=== PATIENT | male | born 1945 | race Caucasian/White ===

== ENCOUNTER 2017-09-08 08:41 | Emergency (ER) | payer MEDICARE, OTHER, SELFPAY ==
[2017-09-08 08:59] VITALS: BP 132/76; PULSE 58; RESP 16; TEMP 36.6; O2SAT 100
--- NOTE | 2017-09-08 09:29 | ED_ITS ---
HPI - Back Pain/Injury General Chief Complaint: Back Pain/Injury Stated Complaint: back pain Time Seen by Provider: 09/08/17 09:13 Source: patient Mode of arrival: ambulatory Limitations: no limitations History of Present Illness HPI Narrative: Patient is a 72-year-old male who presents with back pain. He says he was messing with the filter pulp washer last week when he thinks he tweaked it. He has had multiple back surgeries in the past and feels he may have injured something. He did not fall. Is to the left lateral side. He thinks it feels like a pinched nerves. He has been taking some ibuprofen without much relief he took 1 of his 's Vicodin which only gave him a headache. He has no changes in bowel or bladder habits. MD Complaint: back pain Onset (ago): week(s) (1) Related Data Home Medications Medication Instructions Recorded Confirmed Clopidogrel Hydrogen Sulfate 75 mg PO QDAY #0 07/10/12 (PLAVIX) [SIMVASTATIN] 20 mg HS #0 08/21/12 atenolol 25 mg PO HS #0 08/21/12 Previous Rx's Medication Instructions Recorded cyclobenzaprine 5 mg PO TID PRN #14 tab 09/08/17 Review of Systems Review of Systems All systems reviewed & are unremarkable except as noted in HPI and below Constitutional Denies chills, Denies fever(s), Denies lethargy and Denies weakness Cardiovascular Denies chest pain, Denies irregular heart rhythm, Denies lightheadedness, Denies palpitations, Denies dyspnea, Denies dyspnea on exertion and Denies orthopnea Respiratory Denies cough, Denies dyspnea, Denies dyspnea on exertion and Denies wheezing Musculoskeletal Reports system reviewed and no additional complaints, except as docu, Reports as per HPI, Reports back pain, Denies numbness and Denies tingling Integumentary/Breasts Denies pruritus, Denies erythema, Denies rash and Denies wounds Neurologic Denies focal weakness, Denies numbness, Reports radicular pain, Denies tingling , Denies paresthesias and Denies weakness Endocrine Denies palpitations Allergic/Immunologic Denies wheezing PFSH Medical History Agent orange exposure (Acute) Coronary artery disease (Acute) Prostate cancer (Acute) Surgical History History of lumbar fusion (Acute) Social History Smoking Status: Never smoker alcohol intake: never substance use type: does not use Exam Initial Vital Signs Initial Vital Signs: Vital Signs Temperature 97.9 F 09/08/17 08:59 Pulse Rate 58 L 09/08/17 08:59 Respiratory Rate 16 09/08/17 08:59 Blood Pressure 132/76 H 09/08/17 08:59 Pulse Oximetry 100 09/08/17 08:59 Const General: cooperative Nutritional Appearance: overweight Orientation: alert, awake and oriented x3 Chest Chest: normal inspection of the chest Resp Effort & Inspection: normal respiratory effort, able to speak in complete sentences, no respiratory distress and no use of accessory muscles Auscultation: clear to auscultation bilaterally, no rales, no rhonchi and no wheezes Cardio Rate: regular rate Rhythm: regular rhythm Heart Sounds: no click, no gallops, no murmurs and no rubs Pulses: normal peripheral pulses Back/Spine/Pelvis Thoracic/Lumbar Spine: thoracic and lumbar spine normal to inspection, surgical scar(s) present (Lumbar area), No mass, No thoracic spinal tenderness and other (Tender in thoraco lumbar junction on the left side beyond the para spinal muscles no midline tenderness) Skin General: no rashes or lesions noted, No jaundice and No petechiae Neuro General: alert, oriented x3, gait normal and no focal motor deficits Speech: speech normal Course Vital Signs - 8 hr 09/08/17 08:59 09/08/17 09:44 Temperature 97.9 F Pulse Rate 58 L 59 L Respiratory Rate 16 18 Blood Pressure 132/76 H 140/78 H Pulse Oximetry 100 99 Discharge Plan Departure Patient Disposition: Home, Self-Care Clinical Impression: Thoracic back pain Discharge Date/Time: 09/08/17 09:44 Interventions: ED Discharge Assessment Last Done: 09/08/17 09:44 Instructions: Low Back Pain Activity Restrictions/Additional Instructions: *You have been diagnosed with back pain *What to do: If pain is persisting may require imaging in 1-2 weeks with her primary care physician. Physical therapy may help with back pain. No heavy lifting or strenuous activity but light activity is encouraged *Continue to take medications as directed -Flexeril 1 tablet 3 times a day only if needed for muscle spasm on this does cause drowsiness do not drive racing or operating heavy machinery *Follow up with your primary care provider in 2-3 days *Return to ER if you should have numbness, tingling, changes in bowel or bladder habits any new, worsening or concerning symptoms Prescriptions: New cyclobenzaprine 5 mg tablet 5 mg PO TID PRN (Reason: muscle spasm) Qty: 14 RF: 0 No Action Clopidogrel Hydrogen Sulfate (PLAVIX) 75 mg PO QDAY Qty: 0 RF: 0 atenolol 25 MG tablet 25 mg PO HS Qty: 0 RF: 0 [SIMVASTATIN] 20 mg HS Qty: 0 RF: 0
[2017-09-08 09:44] VITALS: BP 140/78; PULSE 59; RESP 18; O2SAT 99
== END 2017-09-08 09:44 | disposition home or self-care (01) ==
PROVIDERS: Emergency Provider Emergency Medicine; Family Provider Family Medicine; PCP Family Medicine
DX: M54.6 Pain in thoracic spine (principal)
CPT/HCPCS: 99282

== ENCOUNTER → 2018-11-21 09:26 | Outpatient (CLI) | payer MEDICARE, OTHER, SELFPAY ==
[2018-11-21 10:22] LABS: Add Manual Diff / Slide Review NO; Basophils Absolute Auto 0 /uL (0-100); Basophils Percent Auto 0.4 % (0-2); Eosinophils Absolute Auto 100 /uL (0-450); Eosinophils Percent Auto 2.1 % (2-4); Hematocrit 43.5 % (41-53); Hemoglobin 14.7 g/dL (13.5-17.5); Lymphocytes Absolute Auto 900 /uL (1100-4500); Lymphocytes Percent Auto 19.8 % (25-40); Mean Corpuscular HGB Conc 33.7 % (30-36); Mean Corpuscular Hemoglobin 30.3 PG (26-34); Mean Corpuscular Volume 90.1 fL (80-100); Monocytes Absolute Auto 500 /uL (0-900); Monocytes Percent Auto 11.3 % (3-14); Neutrophils Absolute Auto 3000 /uL (1500-7000); Neutrophils Percent Auto 66.4 % (50-75); Platelet Count 192 X10^3/uL (150-400); Red Blood Cell Count 4.83 X10^6/uL (4.5-5.9); Red Cell Distribution Width 14.2 % (11.6-14.8); White Blood Cell Count 4.6 X10^3/uL (4.5-11.0)
[2018-11-21 10:46] LABS: Alanine Aminotransferase 25 IU/L (21-72); Albumin 4.2 g/dL (3.5-5.0); Albumin Globulin Ratio 1.5 (1.0-2.8); Alkaline Phosphatase 63 U/L (38-126); Aspartate Aminotransferase 23 IU/L (17-59); BUN Creatinine Ratio 17.5 (6-22); Bilirubin Total 2.2 mg/dL (0.2-1.3); Blood Urea Nitrogen 21 mg/dL (9-20); Calcium 9.2 mg/dL (8.4-10.2); Carbon Dioxide 28 mmol/L (22-32); Chloride 105 mmol/L (98-107); Cholesterol 86 mg/dL (140-199); Globulin 2.8 g/dL (1.7-4.1); Glucose 96 mg/dL (80-110); HDL Cholesterol 39 mg/dL (40-60); HEMOLYSIS < 15 (0-50); LDL Cholesterol Calculated 30 mg/dL (<100); Potassium 4.4 mmol/L (3.4-5.1); Sodium 141 mmol/L (137-145); Triglycerides 85 mg/dL (35-150)
== END ==
PROVIDERS: Visit Provider Internal Medicine
DX: I25.10 Atherosclerotic heart disease of native coronary artery without angina pectoris (principal); E78.2 Mixed hyperlipidemia
CPT/HCPCS: 36415; 80053; 80061; 85025

== ENCOUNTER 2019-04-30 07:08 | Day surgery (SDC) | payer MEDICARE, OTHER, SELFPAY ==
--- NOTE | 2019-04-30 | PATH_ITS ---
[facility] Accession Number: [id number] . 01 Material submitted: . PART A: colon - TRANSVERSE COLON POLYP X4 PART B: colon - ASCENDING COLON POLYP X3 PART C: colon - DESCENDING COLON POLYP . 02 Diagnosis: A. Transverse Colon Polyp: Multiple portions of tubular adenoma. . B. Ascending Colon Polyps: Portions of tubular adenoma x2. . C. Descending Colon Polyp: Tubular adenoma. [facility] 05/01/2019 1106 Local . 02 Electronically signed: . Chloé Lee MD, Pathologist NPI- [id number] . 01 Gross description: . Part A: TRANSVERSE COLON POLYP X4: Received in formalin are multiple fragment(s) of bull, soft tissue measuring 0.1 x 0.1 x 0.1 cm to 0.4 x 0.4 x 0.2 cm submitted entirely in 1 cassette(s) Part B: ASCENDING COLON POLYP X3: Received in formalin are 3 fragment(s) of bull, soft tissue measuring 0.1 x 0.1 x 0.1 cm to 0.2 x 0.2 x 0.2 cm submitted entirely in 1 cassette(s) Part C: DESCENDING COLON POLYP: Received in formalin is 1 fragment(s) of bull, soft tissue measuring 0.5 x 0.3 x 0.3 cm submitted entirely in 1 cassette(s) /[facility] 04/30/2019 1935 Local . 02 Pathologist provided ICD-10: K63.5 . 02 CPT . 541685, 249234, [id number] Performed at: [address], [place], [place] [id number] MD Tahir Mcfadden MD Phone: [phone] Performed at: [address] [place] [id number] [place] [id number] MD Karen Marte MD Phone: [phone]
[2019-04-30 08:00] VITALS: BP 136/79; PULSE 72; RESP 22; TEMP 36.8; O2SAT 97; BMI 37.8
[2019-04-30] MEDS: SODIUM CHLORIDE 0.9% 1,000 ML 84 ML IV (08:00)
--- NOTE | 2019-04-30 08:33 | PM.HP.1 ---
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 (Chronic) Coronary artery disease (Chronic) Obesity (BMI 30-39.9) (Chronic) Obstructive sleep apnea of adult (Chronic) Primary insomnia (Inactive) Prostate cancer (Inactive) Snoring (Inactive) Surgical History History of lumbar fusion (Resolved) Family & Social History Social History: household members spouse Tobacco & Substance use: Smoking Status Never smoker alcohol intake never alcohol intake frequency 0-2 drinks per day Substance Use Type does not use Meds Home Medications and Allergies Home Medications Medication Instructions Recorded Confirmed Type Clopidogrel Hydrogen Sulfate 75 mg PO QDAY #0 07/10/12 04/30/19 History (PLAVIX) [SIMVASTATIN] 20 mg HS #0 08/21/12 04/30/19 History atenolol 25 mg PO HS #0 08/21/12 04/30/19 History Respironics DreamStation CPAP #1 ea 06/12/18 06/12/18 History aspirin 81 mg PO DAILY 04/30/19 04/30/19 History Allergies Allergy/AdvReac Type Severity Reaction Status Date / Time No Known Drug Allergies Allergy Verified 04/30/19 08:01 Review of Systems Review of Systems ROS: Yes All systems reviewed with the patient and are negative except as otherwise documented Exam Vital Signs (past 8 hours): - 04/30/19 08:00 Temperature 98.2 F Pulse Rate 72 Respiratory Rate 22 Blood Pressure 136/79 Pulse Oximetry 97 Oxygen Delivery Method Room Air Narrative Exam Narrative: Awake alert oriented x3, no acute distress, regular rate and rhythm, lungs clear to auscultation, no lower extremity edema Assessment & Plan Assessment & Plan narrative: colon cancer screening for colonoscopy
[2019-04-30] MEDS: fentaNYL 250 MCG/5 ML INJ IV (08:55)
[2019-04-30] MEDS: MIDAZOLAM 5 MG/5 ML VIAL IV (08:55)
--- NOTE | 2019-04-30 09:22 | PM.OP.ENDO ---
Operative Date/Time/Diagnoses Date of procedure: 04/30/19 Procedure & Clinicians Study performed: Colonoscopy with snare polypectomy Moderate conscious sedation was administered by the endoscopy nurse and supervised by the endoscopist. The following parameters were monitored: Oxygen saturation, heart rate, blood pressure, and response to care. Sedation totals: 5 mg midazolam, 100 mcg fentanyl Indications: Personal history of colon polyps. Last colonoscopy was done in 2008 Procedure Notes Procedure in detail: Prior to the procedure, history and physical was performed, and patient medications and allergies were reviewed. Preprocedure nursing history and assessment was reviewed. Patient identification and proposed procedure were verified by the physician and nurse in the procedure room. The physical status of the patient was reassessed after the procedure. After informed consent was obtained including risks, benefits, and alternatives, the scope was passed under direct vision. Throughout the procedure, the patient's blood pressure, pulse, and oxygen saturations were monitored continuously. The colonoscope was introduced through the anus and advanced to the cecum as identified by the appendiceal orifice and ileocecal valve. The patient tolerated the procedure well. Bowel prep was deemed adequate to detect polyps greater than 5 mm. Perianal and digital rectal examinations were unremarkable. Retroflexion in the rectum revealed grade 1 internal hemorrhoids. Many medium mouth to diverticuli were noted in the sigmoid and descending colon Eight 3-7 mm sessile polyps were removed from the ascending colon (3), transverse colon (4), and descending colon with a cold snare and were retrieved. Impression: Internal hemorrhoids Left-sided colonic diverticulosis Eight 3-7 mm removed from the ascending, transverse, and descending colon Sedation minutes: 29 Complications: other (EBL minimal. No complications) Post-procedure Plan for aftercare: Follow-up pathology results Repeat colonoscopy at a date to be determined based on pathology results High-fiber diet Resume home medications. Restart Plavix tomorrow Discharge home with escort
[2019-04-30 09:27] VITALS: BP 119/73; PULSE 66; RESP 16; TEMP 37.1; O2SAT 98
[2019-04-30 10:00] VITALS: BP 124/75; PULSE 69; RESP 14; TEMP 36.7; O2SAT 99
== END 2019-04-30 10:00 | disposition home or self-care (01) ==
PROVIDERS: PCP Internal Medicine; Referring Provider Internal Medicine; Visit Provider Internal Medicine
PROC: 0DJD8ZZ Inspection of Lower Intestinal Tract, Via Natural or Artificial Opening Endoscopic (ICD-10-PCS; CPT 45378; principal; 2019-04-30 08:30)
DX: Z12.11 Encounter for screening for malignant neoplasm of colon (principal); Z86.010 Personal history of colon polyps; K57.30 Diverticulosis of large intestine without perforation or abscess without bleeding; K64.0 First degree hemorrhoids; D12.2 Benign neoplasm of ascending colon; D12.3 Benign neoplasm of transverse colon; D12.4 Benign neoplasm of descending colon
CPT/HCPCS: 45385; J2250; J3010

== ENCOUNTER → 2020-06-17 15:01 | Outpatient (ROUT) | payer MEDICARE, OTHER, SELFPAY ==
[2020-06-17 16:03] LABS: Add Manual Diff / Slide Review NO; Basophils Absolute Auto 0 /uL (0-100); Basophils Percent Auto 0.5 % (0-2); Eosinophils Absolute Auto 200 /uL (0-450); Eosinophils Percent Auto 4.8 % (2-4); Hematocrit 42.4 % (41-53); Hemoglobin 14.3 g/dL (13.5-17.5); Lymphocytes Absolute Auto 900 /uL (1100-4500); Lymphocytes Percent Auto 17.4 % (25-40); Mean Corpuscular HGB Conc 33.7 % (30-36); Mean Corpuscular Hemoglobin 30.9 PG (26-34); Mean Corpuscular Volume 91.6 fL (80-100); Monocytes Absolute Auto 600 /uL (0-900); Monocytes Percent Auto 11.6 % (3-14); Neutrophils Absolute Auto 3300 /uL (1500-7000); Neutrophils Percent Auto 65.7 % (50-75); Platelet Count 193 X10^3/uL (150-400); Red Blood Cell Count 4.62 X10^6/uL (4.5-5.9); Red Cell Distribution Width 13.5 % (11.6-14.8)
[2020-06-17 16:31] LABS: BUN Creatinine Ratio 15.7 (6-22); Blood Urea Nitrogen 17 mg/dL (9-20); Calcium 9.1 mg/dL (8.4-10.2); Carbon Dioxide 28 mmol/L (22-32); Chloride 107 mmol/L (98-107); Cholesterol 97 mg/dL (140-199); Estimated Glomerular Filt Rate > 60.0 mL/min (>60); Glucose 96 mg/dL (80-110); HDL Cholesterol 47 mg/dL (40-60); HEMOLYSIS < 15 (0-50); LDL Cholesterol Calculated 25 mg/dL (<100); Phosphorous 2.4 mg/dL (2.3-3.7); Sodium 142 mmol/L (137-145); Triglycerides 124 mg/dL (35-150)
[2020-06-17 16:56] LABS: Prostate Specific Antigen 0.095 ng/mL (0.10-4.00)
[2020-06-18 07:08] LABS: Parathyroid Hormone Int 88 pg/mL (15-65)
== END ==
PROVIDERS: PCP Internal Medicine; Visit Provider Internal Medicine
DX: N18.30 Chronic kidney disease, stage 3 unspecified (principal); E78.2 Mixed hyperlipidemia; Z85.46 Personal history of malignant neoplasm of prostate
CPT/HCPCS: 80048; 80061; 83970; 84100; 84153; 85025

== ENCOUNTER 2020-07-18 19:10 | Observation (INO) | payer MEDICARE, OTHER, SELFPAY ==
[2020-07-18] VITALS (13 sets, daily range): BP systolic 135–163; BP diastolic 68–89; PULSE 62–95; RESP 18–24; TEMP 36.6; O2SAT 94–100; BMI 36.5
--- NOTE | 2020-07-18 19:16 | DI.US.S_ITS ---
PROCEDURE: US ABDOMEN LIMITED INDICATIONS: EPIGASTRIC PAIN; N/V TECHNIQUE: Real-time focused scanning was performed of the abdomen, with image documentation. COMPARISON: None. FINDINGS: Liver measures 19.5 cm in length. There is a simple appearing cyst measuring 1.8 x 2.2 x 1.7 cm in the right hepatic lobe. Gallbladder surgically absent. Bile ducts are normal. Pancreas not well seen secondary to body habitus and bowel gas IMPRESSION: Mild hepatomegaly Right hepatic cyst. Status post cholecystectomy Dictated by: Harrison Brown M.D. on 07/18/2020 at 20:21 Approved by: Harrison Brown M.D. on 07/18/2020 at 20:22
[2020-07-18] MEDS: PANTOPRAZOLE 40 MG VIAL IV (19:44)
[2020-07-18] MEDS: SODIUM CHLORIDE 0.9% 1,000 ML 1000 ML IV (19:44)
[2020-07-18] MEDS: ONDANSETRON 4 MG/2 ML INJ IV (19:44)
[2020-07-18 19:46] LABS: Add Manual Diff / Slide Review NO; Basophils Absolute Auto 0 /uL (0-100); Basophils Percent Auto 0.5 % (0-2); Eosinophils Absolute Auto 0 /uL (0-450); Eosinophils Percent Auto 0.2 % (2-4); Hematocrit 44.1 % (41-53); Hemoglobin 15.3 g/dL (13.5-17.5); Lymphocytes Absolute Auto 700 /uL (1100-4500); Lymphocytes Percent Auto 6.8 % (25-40); Mean Corpuscular HGB Conc 34.7 % (30-36); Mean Corpuscular Hemoglobin 31.4 PG (26-34); Mean Corpuscular Volume 90.5 fL (80-100); Monocytes Absolute Auto 1000 /uL (0-900); Monocytes Percent Auto 9.8 % (3-14); Neutrophils Absolute Auto 8100 /uL (1500-7000); Neutrophils Percent Auto 82.7 % (50-75); Platelet Count 197 X10^3/uL (150-400); Red Blood Cell Count 4.88 X10^6/uL (4.5-5.9); Red Cell Distribution Width 13.7 % (11.6-14.8); White Blood Cell Count 9.8 X10^3/uL (4.5-11.0)
[2020-07-18 19:57] LABS: Alanine Aminotransferase 35 IU/L (<50); Albumin 4.5 g/dL (3.5-5.0); Albumin Globulin Ratio 1.5 (1.0-2.8); Alkaline Phosphatase 87 U/L (38-126); Aspartate Aminotransferase 41 IU/L (17-59); BUN Creatinine Ratio 26.4 (6-22); Blood Urea Nitrogen 29 mg/dL (9-20); Calcium 9.3 mg/dL (8.4-10.2); Carbon Dioxide 22 mmol/L (22-32); Chloride 107 mmol/L (98-107); Creatine Kinase 427 U/L (55-170); Estimated Glomerular Filt Rate > 60.0 mL/min (>60); Glucose 109 mg/dL (80-110); HEMOLYSIS 17 (0-50); Lipase 39 U/L (23-300); Potassium 3.8 mmol/L (3.4-5.1); Sodium 138 mmol/L (137-145); Total Protein 7.5 g/dL (6.3-8.2)
[2020-07-18 20:08] LABS: Troponin I < 0.012 ng/mL (0.01-0.034)
--- NOTE | 2020-07-18 20:10 | ED.NAVMDI ---
HPI - Nausea/Vomiting/Diarrhea General Chief complaint: Nausea/Vomiting/Diarrhea Stated complaint: unable to eat anything or keep water down,vomiting Time Seen by Provider: 07/18/20 19:16 Source: patient Mode of arrival: Ambulatory Limitations: no limitations History of Present Illness HPI Narrative: 74-year-old male nonsmoker with cardiac history on atenolol and Plavix presents with his in the chief complaint of persistent nausea and vomiting with episodes of epigastric pain over the past few days. He is unable to keep anything down and any food or drink seems to exacerbate this pain. He denies any fever or chills. He denies chest pain or shortness of breath. He is not dizzy or lightheaded but is starting to feel a bit weak. His only surgical history is of a cholecystectomy years ago. He denies any significant alcohol. He has had no blood in his emesis MD complaint: nausea, vomiting and abdominal pain Onset (ago): day(s) Description of Vomiting: food contents Description of Diarrhea: none Associated Abdominal Pain: Yes Location of pain: epigastric Severity: moderate Quality: cramping Pain Consistency: intermittent Relieving factors: none Exacerbating factors: eating Associated symptoms: denies other symptoms Related Data Home Medications Medication Instructions Recorded Confirmed Clopidogrel Hydrogen Sulfate 75 mg PO QDAY #0 07/10/12 07/18/20 (PLAVIX) [SIMVASTATIN] 20 mg HS #0 08/21/12 04/30/19 atenolol 25 mg PO HS #0 08/21/12 07/18/20 Respironics DreamStation CPAP #1 ea 06/12/18 06/12/18 aspirin 81 mg PO DAILY 04/30/19 07/18/20 Allergies Allergy/AdvReac Type Severity Reaction Status Date / Time No Known Drug Allergies Allergy Verified 04/30/19 08:01 Review of Systems Constitutional Constitutional: Denies chills, Denies fatigue, Denies fever(s), Denies frequent falls, Denies lethargy and Reports weakness Eyes Eyes: Denies change in vision, Denies eye discharge, Denies irritation and Denies loss of vision ENT Ears, Nose, Mouth, and Throat: Denies change in voice, Denies dizziness, Denies neck pain, Denies sore throat and Denies throat swelling Cardiovascular Cardiovascular: Denies chest pain, Denies irregular heart rhythm, Denies lightheadedness, Denies palpitations, Denies dyspnea, Denies dyspnea on exertion and Denies orthopnea Respiratory Respiratory: Denies cough, Denies dyspnea, Denies dyspnea on exertion and Denies wheezing Gastrointestinal Gastrointestinal: Reports abdominal pain, Denies change in bowel habits, Denies diarrhea, Reports nausea and Reports vomiting Musculoskeletal Musculoskeletal: Denies neck pain and Denies numbness Integumentary/Breasts Skin/Breast: Denies pruritus, Denies erythema, Denies rash and Denies wounds Neurologic Neurologic: Denies behavioral changes, Denies confusion, Denies dizziness, Denies frequent falls, Denies loss of vision, Denies numbness and Reports weakness Psychiatric Psychiatric: Denies anxiety, Denies behavioral changes, Denies confusion, Denies depression, Denies homicidal ideation and Denies suicidal ideation Endocrine Endocrine: Denies fatigue, Denies flushing and Denies palpitations Hematologic/Lymphatic Hematologic/Lymphatic: Denies easy bruising Allergic/Immunologic Allergic/Immunologic: Denies urticaria, Denies throat swelling and Denies wheezing Patient History Medical History Agent orange exposure Coronary artery disease Obesity (BMI 30-39.9) Obstructive sleep apnea of adult Primary insomnia Prostate cancer Snoring Surgical History History of lumbar fusion Social History household members: spouse Smoking Status: Never smoker alcohol intake: never substance use type: does not use Smoking Status: Never smoker alcohol intake frequency: 0-2 drinks per day Substance Use Type: does not use Exam Narrative Exam Narrative: GENERAL: [74] year old patient appears stated age. Well-nourished, well-developed patient, in mild distress. Obviously uncomfortable, rubbing his upper abdomen HEAD: Atraumatic. Normocephalic. EYES: Pupils equal round and reactive. Extraocular motions intact. No scleral icterus. No injection or drainage. ENT: Nose without bleeding, purulent drainage. Throat without erythema, tonsillar hypertrophy or exudate. Airway patent. NECK: Trachea midline. Non tender CARDIOVASCULAR: Regular rate and rhythm without murmurs, gallops, or rubs. RESPIRATORY: Clear to auscultation. Breath sounds equal bilaterally. No wheezes, rales, or rhonchi. GASTROINTESTINAL: Abdomen soft, tender to palpation, nondistended. EXTREMITIES: No edema or joint tenderness. BACK: Nontender without deformity or crepitance. No flank tenderness. NEURO: AOx3. SKIN: No rash or erythema of visible areas Initial Vital Signs Initial Vital Signs: Vital Signs Temperature 97.8 F 07/18/20 19:17 Pulse Rate 95 H 07/18/20 19:17 Respiratory Rate 18 07/18/20 19:17 Blood Pressure 163/89 H 07/18/20 19:17 Pulse Oximetry 98 07/18/20 19:17 Course Course Course Narrative: Patient with persistent nausea vomiting and episodic epigastric pain. Initially biliary or pancreatic source considered but there is normal ultrasound, CT is ordered which demonstrates bowel obstruction as noted. Patient is not vomiting and pain is well controlled, no need or indication for NG tube at this point time. Patient will be admitted to surgical service will remain NPO, get IV fluids, pain control and antiemetics. Orders Ordered: ED Orders 07/18/20 19:16 US abdomen limited Stat 07/18/20 19:40 Complete Blood Count AUTO DIFF Stat Comprehensive Metabolic Panel Stat Lipase Stat Troponin & CK Cardiac Panel Stat 07/18/20 20:39 CT abdomen pelvis w con Stat 07/18/20 22:13 COVID19 - ADMIT ([employer] swab/PCR) Stat Discontinued Medications Sodium Chloride (Normal Saline 0.9%) 1,000 mls @ 1,000 mls/hr IV BOLUS ONE Stop: 07/18/20 20:16 Last Infusion: 07/18/20 21:22 Dose: 0 mls/hr Documented by: Admin: 07/18/20 19:44 Dose: 1,000 mls/hr Documented by: DAVION Ondansetron HCl (Ondansetron 4 Mg/2 Ml Inj) 4 mg IV NOW ONE Stop: 07/18/20 19:18 Last Admin: 07/18/20 19:44 Dose: 4 mg Documented by: DAVION Pantoprazole Sodium (Pantoprazole 40 Mg Vial) 40 mg IV NOW ONE Stop: 07/18/20 19:19 Last Admin: 07/18/20 19:44 Dose: 40 mg Documented by: DAVION Vital Signs Vital signs: Vital Signs - 8 hr 07/18/20 19:17 07/18/20 19:25 07/18/20 19:27 Temperature 97.8 F Pulse Rate 95 H 74 72 Respiratory Rate 18 24 23 Blood Pressure 163/89 H 147/80 H Pulse Oximetry 98 98 07/18/20 19:30 07/18/20 20:00 07/18/20 20:05 Temperature Pulse Rate 74 66 66 Respiratory Rate 22 Blood Pressure 144/80 H 149/73 H Pulse Oximetry 98 98 99 07/18/20 20:30 07/18/20 21:00 07/18/20 21:30 Temperature Pulse Rate 65 64 62 Respiratory Rate 20 24 Blood Pressure 145/70 H 155/77 H Pulse Oximetry 99 99 98 07/18/20 22:00 Temperature Pulse Rate 67 Respiratory Rate 24 Blood Pressure 144/68 H Pulse Oximetry 94 MDM - Nausea/Vomiting/Diarrhea Lab Data Result diagrams: 07/18/20 19:40 07/18/20 19:40 Labs: Lab Results 07/18/20 07/18/20 Range/Units 19:40 19:40 WBC 9.8 (4.5-11.0) X10^3/uL RBC 4.88 (4.5-5.9) X10^6/uL Hgb 15.3 (13.5-17.5) g/dL Hct 44.1 (41-53) % MCV 90.5 (80-100) fL MCH 31.4 (26-34) PG MCHC 34.7 (30-36) % RDW 13.7 (11.6-14.8) % Plt Count 197 (150-400) X10^3/uL Neut % (Auto) 82.7 H (50-75) % Lymph % (Auto) 6.8 L (25-40) % Cascade % (Auto) 9.8 (3-14) % Eos % (Auto) 0.2 L (2-4) % Baso % (Auto) 0.5 (0-2) % Neut # (Auto) 8100 H (1504-2667) /uL Lymph # (Auto) 700 L (7333-8956) /uL Cascade # (Auto) 1000 H (0-900) /uL Eos # (Auto) 0 (0-450) /uL Baso # (Auto) 0 (0-100) /uL Sodium 138 (137-145) mmol/L Potassium 3.8 (3.4-5.1) mmol/L Chloride 107 (98-107) mmol/L Carbon Dioxide 22 (22-32) mmol/L BUN 29 H (9-20) mg/dL Creatinine 1.10 (0.66-1.25) mg/dL Estimated GFR > 60.0 (>60) mL/min BUN/Creatinine Ratio 26.4 H (6-22) Glucose 109 (80-110) mg/dL Calcium 9.3 (8.4-10.2) mg/dL Total Bilirubin 4.0 H (0.2-1.3) mg/dL AST 41 (17-59) IU/L ALT 35 (<50) IU/L Alkaline Phosphatase 87 (38-126) U/L Total Creatine Kinase 427 H (55-170) U/L CK-MB (CK-2) 2.47 H (<2.37) ng/mL CK-MB (CK-2) Rel Index 0.6 L (1.5-5.0) % Troponin I < 0.012 (0.01-0.034) ng/mL Total Protein 7.5 (6.3-8.2) g/dL Albumin 4.5 (3.5-5.0) g/dL Globulin 3.0 (1.7-4.1) g/dL Albumin/Globulin Ratio 1.5 (1.0-2.8) Lipase 39 (23-300) U/L Imaging Data US - abdomen: Radiologist's Impression: [address] [id number] ReportSigned Patient: Jamie Brambila WMR#: [id number]: 4Acct:[id number]/Sex: 74 / MDate of Service: 07/18/20Loc: EDAccession Number: [id number] Procedure: US abdomen limited Ordering Provider: Zeb Serrano D.O. PROCEDURE: US ABDOMEN LIMITED INDICATIONS: EPIGASTRIC PAIN; N/V TECHNIQUE: Real-time focused scanning was performed of the abdomen, with image documentation. COMPARISON: None. FINDINGS: Liver measures 19.5 cm in length. There is a simple appearing cyst measuring 1.8 x 2.2 x 1.7 cm in the right hepatic lobe. Gallbladder surgically absent. Bile ducts are normal. Pancreas not well seen secondary to body habitus and bowel gas IMPRESSION: Mild hepatomegaly Right hepatic cyst. Status post cholecystectomy Dictated by: Harrison Brown M.D. on 07/18/2020 at 20:21 Approved by: Harrison Brown M.D. on 07/18/2020 at 20:22 CT scan - abdomen/pelvis: Radiologist's Impression: Jamie Brambila 74 M [address] [id number] Scan ReportSigned Patient: Jamie Brambila WMR#: [id number]: 1945cct:[id number]/Sex: 74 / MDate of Service: 07/18/20Loc: EDAccession Number: [id number] Procedure: CT abdomen pelvis w con Ordering Provider: Zeb Serrano D.O. PROCEDURE: CT ABDOMEN PELVIS W CON INDICATIONS: severe abdominal pain, N/V TECHNIQUE: After the administration of intravenous contrast, 5 mm thick sections acquired from the diaphragm to the symphysis. 5 mm coronal and sagittal reformats were acquired. For radiation dose reduction, the following was used: automated exposure control, adjustment of mA and/or kV according to patient size. COMPARISON: [facility], CT, ABDOMEN/PELVIS WITH CONTRAST, 01/27/2011, 10:07. FINDINGS: ABDOMEN: Lung bases: Normal. Small hiatal hernia Liver: Subcentimeter hepatic foci are statistically cysts or hemangiomas, although technically too small to characterize accurately and therefore nonspecific. Gallbladder: Absent Bile ducts: Normal. Pancreas: Normal. Spleen: Normal. Adrenals: Normal. Kidneys: Bilateral renal cortical atrophy and scarring. Subcentimeter renal foci, statistically cysts, although technically too small to characterize accurately and therefore nonspecific. Stomach: Normal. Bowel: Dilated small bowel loops and scattered air-fluid levels. The colon is decompressed. Other: No free fluid or air. Colonic diverticulosis is seen without evidence of acute complication. Abdominal nodes: Normal. Aorta and IVC: Normal in size. Ventral wall: Large periumbilical fat and fluid containing hernia PELVIS: Bladder: Normal. Inguinal: No hernia. Pelvic nodes: Normal. Bones: Spondylytic changes and facet arthropathy. No vertebral body compression fracture. IMPRESSION: Small-bowel obstruction, the exact transition point is not well seen although probably distal small bowel. Small hiatal hernia Additional chronic/incidental findings as above. Dictated by: Harrison Brown M.D. on 07/18/2020 at 21:23 Approved by: Harrison Brown M.D. on 07/18/2020 at 21:31 Discharge Plan Departure Patient Disposition: Admitted As Inpatient Clinical Impression: Partial obstruction of small intestine
[2020-07-18 20:12] LABS: CKMB % Relative Index 0.6 % (1.5-5.0); Creatine Kinase MB 2.47 ng/mL (<2.37)
--- NOTE | 2020-07-18 20:39 | DI.CT.S_ITS ---
PROCEDURE: CT ABDOMEN PELVIS W CON INDICATIONS: severe abdominal pain, N/V TECHNIQUE: After the administration of intravenous contrast, 5 mm thick sections acquired from the diaphragm to the symphysis. 5 mm coronal and sagittal reformats were acquired. For radiation dose reduction, the following was used: automated exposure control, adjustment of mA and/or kV according to patient size. COMPARISON: [facility], CT, ABDOMEN/PELVIS WITH CONTRAST, 01/27/2011, 10:07. FINDINGS: ABDOMEN: Lung bases: Normal. Small hiatal hernia Liver: Subcentimeter hepatic foci are statistically cysts or hemangiomas, although technically too small to characterize accurately and therefore nonspecific. Gallbladder: Absent Bile ducts: Normal. Pancreas: Normal. Spleen: Normal. Adrenals: Normal. Kidneys: Bilateral renal cortical atrophy and scarring. Subcentimeter renal foci, statistically cysts, although technically too small to characterize accurately and therefore nonspecific. Stomach: Normal. Bowel: Dilated small bowel loops and scattered air-fluid levels. The colon is decompressed. Other: No free fluid or air. Colonic diverticulosis is seen without evidence of acute complication. Abdominal nodes: Normal. Aorta and IVC: Normal in size. Ventral wall: Large periumbilical fat and fluid containing hernia PELVIS: Bladder: Normal. Inguinal: No hernia. Pelvic nodes: Normal. Bones: Spondylytic changes and facet arthropathy. No vertebral body compression fracture. IMPRESSION: Small-bowel obstruction, the exact transition point is not well seen although probably distal small bowel. Small hiatal hernia Additional chronic/incidental findings as above. Dictated by: Harrison Brown M.D. on 07/18/2020 at 21:23 Approved by: Harrison Brown M.D. on 07/18/2020 at 21:31
[2020-07-18 23:37] LABS: COVID19 - ADMIT (NP swab/PCR) Negative (Negative)
[2020-07-19 00:05] VITALS: BP 144/73; PULSE 64; RESP 18; TEMP 36.3; O2SAT 98
[2020-07-19] MEDS: SODIUM CHLORIDE 0.9% 1,000 ML 125 ML IV (00:23)
[2020-07-19 00:24] VITALS: BMI 36.3
--- NOTE | 2020-07-19 01:25 | PC.ADMIT ---
Addendum entered by Rhea Doshi R.N. 07/19/20 01:41: additional note: patient states he has some chronic SOB with exertion and does have history of sleep apnea. Did not bring home CPAP with and declines offer to use hospital CPAP. Original Note: patient admitted to room 213 at 0005 from ER per wheelchair. States he came in because, since Sunday, he wasn't able to keep anything down; also reports having had some diarrhea type stools. Patient is alert and oriented. Breath sounds diminished but CTA with RA sat of 98%. HRR. BP slightly elevated at 144/73. Denies nausea at this time. BT present but hypoactive. Denies abdominal pain/tenderness. Has reddened patch of skin in abdominal fold which appears bruised and skin is peeling; patient reports he has had this area since having radiation for prostate cancer. Scattered abrasions on bilateral UE. Denies dysuria, frequency or urgency with urination. Is able to move self in bed. Reports no use of assistive device for ambulation. Denies weakness or unsteadiness when on feet. Instructed in NPO status, use of call light and bed controls. Wallet w/money/cards placed in safe. Fall risk score is low. [email or web address] Admission Note: The patient,Jamie Brambila,74 y/o, was given written information regarding hospital policies, unit procedures and contact persons. Patient's smoking status: Former smoker. Vital Signs - 8 hr 07/18/20 19:17 07/18/20 19:25 07/18/20 19:27 Temperature 97.8 F Pulse Rate 95 H 74 72 Respiratory Rate 18 24 23 Blood Pressure 163/89 H 147/80 H Pulse Oximetry 98 98 07/18/20 19:30 07/18/20 20:00 07/18/20 20:05 Temperature Pulse Rate 74 66 66 Respiratory Rate 22 Blood Pressure 144/80 H 149/73 H Pulse Oximetry 98 98 99 07/18/20 20:30 07/18/20 21:00 07/18/20 21:30 Temperature Pulse Rate 65 64 62 Respiratory Rate 20 24 Blood Pressure 145/70 H 155/77 H Pulse Oximetry 99 99 98 07/18/20 22:00 07/18/20 22:30 07/18/20 23:00 Temperature Pulse Rate 67 64 65 Respiratory Rate 24 19 18 Blood Pressure 144/68 H 137/71 135/72 Pulse Oximetry 94 98 99 07/18/20 23:30 07/19/20 00:05 Temperature 97.3 F L Pulse Rate 65 64 Respiratory Rate 18 18 Blood Pressure 141/75 H 144/73 H Pulse Oximetry 100 98
[2020-07-19 03:57] VITALS: BP 125/57; PULSE 63; RESP 18; TEMP 36.3; O2SAT 97
[2020-07-19 07:26] VITALS: BP 169/85; PULSE 76; RESP 18; TEMP 36.2; O2SAT 99
--- NOTE | 2020-07-19 07:49 | PM.HP.1 ---
History of Present Illness History of Present Illness Date Patient Seen: 07/19/20 Time Patient Seen: 07:50 Chief complaint: unable to eat anything or keep water down,vomiting Narrative: 74-year-old man history of a cholecystectomy admitted for a partial small bowel obstruction. He presented to the emergency room with nausea emesis some generalized abdominal pain. At admission WBC 10, CT abdomen pelvis demonstrates dilated loops of small bowel questionable transition point no free air or fluid. Since admission his nausea and emesis have resolved. He is hungry, having diarrhea and passing flatus. Patient History Medical History Agent orange exposure Coronary artery disease Obesity (BMI 30-39.9) Obstructive sleep apnea of adult Primary insomnia Prostate cancer Snoring Surgical History History of lumbar fusion Family & Social History Social History: household members spouse Prior Living Arrangements House Safety & Behavioral: Feels Safe in Current Yes Environment Been Physically Hurt or No Threatened By a Person Suicidal Ideation Description None Suicide Plan Description No Plan Tobacco & Substance use: Tobacco type pipe Smoking Status Former smoker alcohol intake former alcohol intake frequency 0-2 drinks per day Substance Use Type does not use Meds Home Medications and Allergies Home Medications Medication Instructions Recorded Confirmed Type Clopidogrel Hydrogen Sulfate 75 mg PO QDAY #0 07/10/12 07/18/20 History (PLAVIX) atenolol 25 mg PO HS #0 08/21/12 07/18/20 History Respironics DreamStation CPAP #1 ea 06/12/18 06/12/18 History aspirin 81 mg PO DAILY 04/30/19 07/18/20 History simvastatin 40 mg PO DAILY 07/19/20 07/19/20 History Allergies Allergy/AdvReac Type Severity Reaction Status Date / Time No Known Drug Allergies Allergy Verified 04/30/19 08:01 Review of Systems Review of Systems ROS: Yes All systems reviewed with the patient and are negative except as otherwise documented Exam Vital Signs (past 8 hours): - 07/19/20 00:05 07/19/20 03:57 07/19/20 07:26 Temperature 97.3 F L 97.4 F L 97.2 F L Pulse Rate 64 63 76 Respiratory Rate 18 18 18 Blood Pressure 144/73 H 125/57 L 169/85 H Pulse Oximetry 98 97 99 Oxygen Delivery Method Room Air Oxygen Flow Rate 0 Narrative Exam Narrative: GENERAL-well developed elderly male, no acute distress HEENT-no scleral icterus, hearing intact NECK-no JVD, trachea midline CVS- regular rate, no peripheral edema RESP-unlabored respiratory effort, no audible wheezing GI-soft, nontender nondistended MSK-no cyanosis or clubbing, extremities without deformity SKIN-warm, dry NEURO-alert and oriented, no focal deficits PYSCH-Appropriate mood and affect Objective Labs Result Diagrams: 07/18/20 19:40 07/18/20 19:40 Labs: Laboratory Results - last 24 hr 07/18/20 07/18/20 07/18/20 19:40 19:40 22:13 WBC 9.8 RBC 4.88 Hgb 15.3 Hct 44.1 MCV 90.5 MCH 31.4 MCHC 34.7 RDW 13.7 Plt Count 197 Neut % (Auto) 82.7 H Lymph % (Auto) 6.8 L [place] % (Auto) 9.8 Eos % (Auto) 0.2 L Baso % (Auto) 0.5 Neut # (Auto) 8100 H Lymph # (Auto) 700 L [place] # (Auto) 1000 H Eos # (Auto) 0 Baso # (Auto) 0 Sodium 138 Potassium 3.8 Chloride 107 Carbon Dioxide 22 BUN 29 H Creatinine 1.10 Estimated GFR > 60.0 BUN/Creatinine Ratio 26.4 H Glucose 109 Calcium 9.3 Total Bilirubin 4.0 H AST 41 ALT 35 Alkaline Phosphatase 87 Total Creatine Kinase 427 H CK-MB (CK-2) 2.47 H CK-MB (CK-2) Rel Index 0.6 L Troponin I < 0.012 Total Protein 7.5 Albumin 4.5 Globulin 3.0 Albumin/Globulin Ratio 1.5 Lipase 39 SARS-CoV-2 (PCR) Negative Assessment & Plan Assessment & Plan narrative: 74-year-old man history of abdominal surgery admitted for a partial small bowel obstruction. Obstruction appears to be resolving spontaneously with conservative measures. No acute surgical intervention -clear liquid diet advance diet as tolerated -if tolerates diet may discharge home today -SCDs for VT prophylaxis.
[2020-07-19 08:00] VITALS: O2SAT 97
[2020-07-19 11:21] VITALS: BP 145/82; PULSE 65; RESP 16; TEMP 36.3; O2SAT 97
[2020-07-19] MEDS: SODIUM CHLORIDE 0.9% 1,000 ML 75 ML IV (12:26)
[2020-07-19 12:30] VITALS: O2SAT 97
--- NOTE | 2020-07-19 13:16 | CM.DANOTE ---
DCP/Assessment: Reviewed chart. Patient is a 74yr old male admitted to [facility] with partial SBO. PCP is Dr. More. Primary payor is 1)Medicare 2)[place]. Met with patient this AM explained CM/SW role. Patient alert and oriented, resting comfortably in bed at time of visit. Patient reports that he is completely I with all ADL's. Patient hopes to d/c home later today or in AM. Patient started on clears this AM. Dr. Jarquin is attending. P: Home when medically stable. Patient has no anticipated d/c planning needs. CLINTON Agustin Discharge Planning/Care Management CM Discharge Assessment Start: 07/19/20 13:14 Freq: Status: Active Protocol: Document 07/19/20 13:14 KJS (Rec: 07/19/20 13:16 KJS [id number]) Discharge Planning Assessment Assigned Supervisor Plate Forming CLINTON Agustin Contact Information Stephani Keating (spouse) ph# [phone] Advance Directives? No Advance Directives on File No History Provided By Patient,Medical Record Prior Living Arrangements House Household Members spouse Type of transporation used prior to Drives own vehicle admit Independent with ADL's Yes Is patient alert and oriented? Yes Caregiver for Another No Barriers to Discharge No Discharge Plan Home Transportation Arrangement Family to provide transport. Whiteboard Updated in Patient Room with Yes name and ext. # of Supervisor Plate Forming Review Status In Process Next Review Type Continued Stay Review
--- NOTE | 2020-07-19 14:08 | PC.NURSE ---
Day shift: Paperwork signed and all questions answered. Pt happy to be going home today. His spouse is driving him home. No new meds. Pt has all personal belongings. Pt had no nausea or epigastric pain today. Denied any pain as well. TOlerated clears for breakfast and lunch. Stools remain loose. aware. Taken to care in by CHRISTOPHER Foy.
== END 2020-07-19 14:10 | disposition home or self-care (01) ==
LOC: ED 22:23 → AC 07-19 07:56
PROVIDERS: Admitting Provider Surgery; Emergency Provider Emergency Medicine; PCP Internal Medicine; Referring Provider Emergency Medicine; Visit Provider Surgery
DX: R11.2 Nausea with vomiting, unspecified (principal); R10.13 Epigastric pain; G47.33 Obstructive sleep apnea (adult) (pediatric); I25.10 Atherosclerotic heart disease of native coronary artery without angina pectoris; E66.9 Obesity, unspecified; Z20.822 Contact with and (suspected) exposure to COVID-19
CPT/HCPCS: 36415; 74177; 76705; 80053; 82550; 82553; 83690; 84484; 85025; 87635; 96361; 96374; 96375; 99219; 99284; C9803; G0378; C9113; J2405

== ENCOUNTER 2022-11-09 12:02 | Inpatient (IN) | payer MEDICARE, OTHER, SELFPAY ==
[2022-11-09] VITALS (26 sets, daily range): BP systolic 105–134; BP diastolic 61–92; PULSE 112–118; RESP 18–32; TEMP 36.4; O2SAT 95–99
--- NOTE | 2022-11-09 12:22 | DI.RAD.S_ITS ---
PROCEDURE: XR CHEST 1V INDICATIONS: chest pain TECHNIQUE: One view of the chest was acquired. COMPARISON: [facility], , CHEST 2 VIEW, 07/02/2012, 15:02. FINDINGS: Surgical changes and devices: None. Lungs and pleura: Lungs are clear. No pleural effusions or pneumothorax. Mediastinum: Mediastinal contours appear normal. Heart is enlarged. Bones and chest wall: No suspicious bony lesions. Overlying soft tissues appear unremarkable. IMPRESSION: No acute cardiopulmonary disease process. Dictated by: Eun Overton MD, PhD on 11/09/2022 at 13:13 Approved by: Eun Overton MD, PhD on 11/09/2022 at 13:14
[2022-11-09 12:43] LABS: Add Manual Diff / Slide Review NO; Basophils Absolute Auto 0 /uL (0-100); Basophils Percent Auto 0.9 % (0-2); Eosinophils Absolute Auto 100 /uL (0-450); Eosinophils Percent Auto 2.4 % (2-4); Hematocrit 44.8 % (41-53); Hemoglobin 15.2 g/dL (13.5-17.5); Lymphocytes Absolute Auto 900 /uL (1100-4500); Mean Corpuscular Hemoglobin 30.6 PG (26-34); Mean Corpuscular Volume 90.1 fL (80-100); Monocytes Absolute Auto 700 /uL (0-900); Monocytes Percent Auto 11.9 % (3-14); Neutrophils Absolute Auto 3800 /uL (1500-7000); Neutrophils Percent Auto 67.8 % (50-75); Platelet Count 187 X10^3/uL (150-400); Red Blood Cell Count 4.98 X10^6/uL (4.5-5.9); Red Cell Distribution Width 13.7 % (11.6-14.8); White Blood Cell Count 5.5 X10^3/uL (4.5-11.0)
[2022-11-09 12:47] LABS: INR 1.2 (0.9-1.3); Prothrombin Time 14.3 SECONDS (10.1-12.7)
[2022-11-09 12:50] LABS: PTT Partial Thromboplastin Tim 33 SECONDS (26-36)
[2022-11-09 12:57] LABS: Alanine Aminotransferase 21 IU/L (<50); Albumin 4.3 g/dL (3.5-5.0); Albumin Globulin Ratio 1.4 (1.0-2.8); Alkaline Phosphatase 62 U/L (38-126); Aspartate Aminotransferase 25 IU/L (17-59); BUN Creatinine Ratio 15.2 (6-22); Bilirubin Total 2.6 mg/dL (0.2-1.3); Blood Urea Nitrogen 19 mg/dL (9-20); Calcium 8.9 mg/dL (8.4-10.2); Carbon Dioxide 27 mmol/L (22-32); Chloride 105 mmol/L (98-107); Creatine Kinase 86 U/L (55-170); Estimated Glomerular Filt Rate 59 mL/min (>60); Glucose 98 mg/dL (80-110); HEMOLYSIS 15 (0-50); Lipase 50 U/L (23-300); Potassium 4.2 mmol/L (3.4-5.1); Sodium 139 mmol/L (137-145); Total Protein 7.3 g/dL (6.3-8.2)
[2022-11-09 13:05] LABS: NT-proBNP (BNP-Adult 18+) 2350 pg/mL (<450)
[2022-11-09 13:07] LABS: Troponin I < 0.012 ng/mL (0.01-0.034)
[2022-11-09 13:31] LABS: TSH w/ Reflex to FT4 1.86 uIU/mL (0.47-4.68)
--- NOTE | 2022-11-09 18:47 | ED.ARRPALP ---
HPI - Arrhythmia/Palpitations General Chief Complaint: Arrhythmia/Palpitations Stated Complaint: SOB, high pulse, sent by pcp Time Seen by Provider: 11/09/22 12:32 Source: patient Mode of arrival: Wheelchair History of Present Illness HPI narrative: Patient is a 77-year-old male who was sent over to the emergency department by his primary doctor for evaluation of an elevated pulse and shortness of breath. Patient states that over the past couple weeks/month or more he is had shortness of breath specifically with exertion. He is not had any chest pain. No palpitations. No lower extremity swelling. No cough. No sinus congestion. He denies any underlying lung pathology to include COPD, emphysema, asthma. He states he is never had a heart attack before. Denies any prior history of abnormal heart rhythms. He is on medications for high blood pressure. He states that he can lay flat at night when he sleeps but he does wear a CPAP. Related Data Home Medications Medication Instructions Recorded Confirmed [employer] DreamStation CPAP #1 ea 12/15/21 12/15/21 atenolol 25 mg tablet 25 mg PO DAILY 11/09/22 11/09/22 atorvastatin 40 mg tablet 40 mg PO DAILY 11/09/22 11/09/22 clopidogrel 75 mg tablet 75 mg PO DAILY 11/09/22 11/09/22 Allergies Allergy/AdvReac Type Severity Reaction Status Date / Time No Known Drug Allergies Allergy Verified 11/09/22 12:19 Review of Systems Constitutional Constitutional: Reports system reviewed and no additional complaints, except as documented Cardiovascular Cardiovascular: Reports system reviewed and no additional complaints, except as documented Respiratory Respiratory: Reports system reviewed and no additional complaints, except as documented Gastrointestinal Gastrointestinal: Reports system reviewed and no additional complaints, except as documented Integumentary/Breasts Skin/Breast: Reports system reviewed and no additional complaints, except as documented Neurologic Neurologic: Reports system reviewed and no additional complaints, except as documented Hematologic/Lymphatic On Anticoagulants: No Patient History Medical History Agent orange exposure Coronary artery disease Obesity (BMI 30-39.9) Obstructive sleep apnea of adult Primary insomnia Prostate cancer Snoring Surgical History History of lumbar fusion Social History household members: spouse Smoking Status: Former smoker alcohol intake: former substance use type: does not use Smoking Status: Former smoker alcohol intake frequency: holidays/special occasions only Substance Use Type: does not use Exam Initial Vital Signs Initial Vital Signs: Vital Signs Temperature 97.6 F 11/09/22 12:19 Pulse Rate 117 H 11/09/22 12:19 Respiratory Rate 18 11/09/22 12:19 Blood Pressure 118/83 11/09/22 12:19 Pulse Oximetry 97 11/09/22 12:19 Oxygen Delivery Method Room Air 11/09/22 12:19 Const General: cooperative, comfortable and No ill appearing HENMT Head: normal to inspection and normocephalic Resp Effort & Inspection: normal respiratory effort Auscultation: clear to auscultation bilaterally Cardio Rate: tachycardic Rhythm: regular rhythm GI Inspection: normal to inspection and non-distended Palpation: soft and No tender Skin General: no rashes or lesions noted Neuro General: patient alert, patient awake, patient oriented x3 and moves all extremities Speech: speech normal Extrem General: No edema Course Orders Ordered: ED Orders 11/09/22 20:30 PTT Partial Thromboplastin Domenic Q6H 11/10/22 02:30 PTT Partial Thromboplastin Domenic Q6H 11/10/22 08:30 PTT Partial Thromboplastin Domenic Q6H 11/10/22 14:30 PTT Partial Thromboplastin Domenic Q6H 11/11/22 05:00 Hemoglobin and Hematocrit DAILY Platelet Count DAILY Acetaminophen (Acetaminophen 325 Mg Tablet) 650 mg PO Q6H PRN PRN Reason: Fever/Mild Pain (1-3) Aspirin (Aspirin 81 Mg Chew Tab) 81 mg PO DAILY LOU Atorvastatin Calcium (Atorvastatin 20 Mg Tablet) 40 mg PO BEDTIME LOU Clopidogrel Bisulfate (Clopidogrel 75 Mg Tablet) 75 mg PO DAILY [facility] Metoprolol Tartrate (Metoprolol Ir 25 Mg Tablet) 25 mg PO BID LOU Naloxone HCl (Naloxone 0.4 Mg/Ml Vial) 0.2 mg IV Q2MIN PRN PRN Reason: Opiate Reversal Discontinued Medications Enoxaparin Sodium (Enoxaparin 40 Mg/0.4 Ml Syringe) 125 mg 1 mg/kg (125 mg) SUBCUT NOW ONE Stop: 11/09/22 23:49 Last Admin: 11/10/22 01:01 Dose: 125 mg Documented By: GC Furosemide (Furosemide 40 Mg/4 Ml Vial) 40 mg IV NOW ONE Stop: 11/09/22 19:22 Last Admin: 11/09/22 19:39 Dose: 40 mg Documented By: SUZANNE Heparin Sodium (Porcine) (Heparin 5,000 Unit/Ml Vial) 7,500 unit IV NOW ONE Stop: 11/09/22 20:17 Last Admin: 11/09/22 20:46 Dose: Not Given Documented By: PHIL Heparin Sodium/Dextrose (Heparin Drip) 25,000 unit in 500 mls @ 45.722 mls/hr IV CONT LOU; Protocol Metoprolol Succinate (Metoprolol Er 25 Mg Tablet) 25 mg PO NOW ONE Stop: 11/09/22 19:22 Last Admin: 11/09/22 19:39 Dose: 25 mg Documented By: SUZANNE Vital Signs Vital signs: Vital Signs - 8 hr 11/09/22 19:00 11/09/22 19:00 11/09/22 19:39 Pulse Rate 116 H 116 H Respiratory Rate 23 Blood Pressure 109/79 121/80 Pulse Oximetry 98 11/09/22 20:10 11/09/22 19:30 11/09/22 19:30 Pulse Rate 118 H 115 H Respiratory Rate 31 H Blood Pressure 134/88 121/80 Pulse Oximetry 98 11/09/22 20:03 11/09/22 20:35 11/09/22 20:36 Pulse Rate 117 H 116 H 116 H Respiratory Rate 27 H 28 H Blood Pressure Pulse Oximetry 97 98 98 11/09/22 20:36 Pulse Rate Respiratory Rate Blood Pressure 134/88 Pulse Oximetry MDM - Arrhythmia/Palpitations Medical Records Attestation: I reviewed the patient's medical records. Lab Data Attestation: I reviewed the patient's lab results. 11/09/22 12:30 11/09/22 12:30 Labs: Lab Results 11/09/22 11/09/22 11/09/22 Range/Units 12:30 12:30 12:30 WBC 5.5 (4.5-11.0) X10^3/uL RBC 4.98 (4.5-5.9) X10^6/uL Hgb 15.2 (13.5-17.5) g/dL Hct 44.8 (41-53) % MCV 90.1 (80-100) fL MCH 30.6 (26-34) PG MCHC 34.0 (30-36) % RDW 13.7 (11.6-14.8) % Plt Count 187 (150-400) X10^3/uL Neut % (Auto) 67.8 (50-75) % Lymph % (Auto) 17.0 L (25-40) % [place] % (Auto) 11.9 (3-14) % Eos % (Auto) 2.4 (2-4) % Baso % (Auto) 0.9 (0-2) % Neut # (Auto) 3800 (3620-0848) /uL Lymph # (Auto) 900 L (5278-9050) /uL [place] # (Auto) 700 (0-900) /uL Eos # (Auto) 100 (0-450) /uL Baso # (Auto) 0 (0-100) /uL PT 14.3 H (10.1-12.7) SECONDS INR 1.2 (0.9-1.3) APTT 33 (26-36) SECONDS Sodium 139 (137-145) mmol/L Potassium 4.2 (3.4-5.1) mmol/L Chloride 105 (98-107) mmol/L Carbon Dioxide 27 (22-32) mmol/L BUN 19 (9-20) mg/dL Creatinine 1.25 (0.66-1.25) mg/dL Estimated GFR 59 L (>60) mL/min BUN/Creatinine Ratio 15.2 (6-22) Glucose 98 (80-110) mg/dL Calcium 8.9 (8.4-10.2) mg/dL Magnesium 2.0 (1.6-2.3) mg/dL Total Bilirubin 2.6 H (0.2-1.3) mg/dL AST 25 (17-59) IU/L ALT 21 (<50) IU/L Alkaline Phosphatase 62 (38-126) U/L Total Creatine Kinase 86 (55-170) U/L Troponin I < 0.012 (0.01-0.034) ng/mL NT-Pro-B Natriuret Pep (<450) pg/mL Total Protein 7.3 (6.3-8.2) g/dL Albumin 4.3 (3.5-5.0) g/dL Globulin 3.0 (1.7-4.1) g/dL Albumin/Globulin Ratio 1.4 (1.0-2.8) Lipase 50 (23-300) U/L TSH (0.47-4.68) uIU/mL 11/09/22 11/09/22 Range/Units 12:30 12:30 WBC (4.5-11.0) X10^3/uL RBC (4.5-5.9) X10^6/uL Hgb (13.5-17.5) g/dL Hct (41-53) % MCV (80-100) fL MCH (26-34) PG MCHC (30-36) % RDW (11.6-14.8) % Plt Count (150-400) X10^3/uL Neut % (Auto) (50-75) % Lymph % (Auto) (25-40) % [place] % (Auto) (3-14) % Eos % (Auto) (2-4) % Baso % (Auto) (0-2) % Neut # (Auto) (2765-0268) /uL Lymph # (Auto) (8579-9371) /uL [place] # (Auto) (0-900) /uL Eos # (Auto) (0-450) /uL Baso # (Auto) (0-100) /uL PT (10.1-12.7) SECONDS INR (0.9-1.3) APTT (26-36) SECONDS Sodium (137-145) mmol/L Potassium (3.4-5.1) mmol/L Chloride (98-107) mmol/L Carbon Dioxide (22-32) mmol/L BUN (9-20) mg/dL Creatinine (0.66-1.25) mg/dL Estimated GFR (>60) mL/min BUN/Creatinine Ratio (6-22) Glucose (80-110) mg/dL Calcium (8.4-10.2) mg/dL Magnesium (1.6-2.3) mg/dL Total Bilirubin (0.2-1.3) mg/dL AST (17-59) IU/L ALT (<50) IU/L Alkaline Phosphatase (38-126) U/L Total Creatine Kinase (55-170) U/L Troponin I (0.01-0.034) ng/mL NT-Pro-B Natriuret Pep 2350 H (<450) pg/mL Total Protein (6.3-8.2) g/dL Albumin (3.5-5.0) g/dL Globulin (1.7-4.1) g/dL Albumin/Globulin Ratio (1.0-2.8) Lipase (23-300) U/L TSH 1.86 (0.47-4.68) uIU/mL Imaging Data Chest x-ray: Radiologist's Impresson: PROCEDURE:? XR CHEST 1V ? INDICATIONS:? chest pain ? TECHNIQUE:? One view of the chest was acquired.? ? COMPARISON:? [facility], , CHEST 2 VIEW, 07/02/2012, 15:02. ? FINDINGS:? ? Surgical changes and devices:? None.? ? Lungs and pleura:? Lungs are clear.? No pleural effusions or pneumothorax.? ? Mediastinum:? Mediastinal contours appear normal.? Heart is enlarged. ? Bones and chest wall:? No suspicious bony lesions.? Overlying soft tissues appear unremarkable.? ? IMPRESSION:? No acute cardiopulmonary disease process. ECG Data Attestation: I personally reviewed and interpreted this ECG as follows: Interpretation: Atrial flutter Ventricular rate 117 Normal QRS QTC Right bundle-branch block No ST T wave changes MDM Narrative Medical decision making narrative: Approximately 1 month of shortness of breath on exertion. No chest pain. No palpitations. His atrial flutter on his EKG. This does appear to be a new diagnosis. Patient is asymptomatic from this. He denies any other underlying lung pathology. No cough. Low suspicion that this is an infectious etiology. His BNP is elevated. He denies any prior history of an echocardiogram. He is no lower extremity swelling. Cardiomegaly on the chest x-ray but no pulmonary edema. I did discuss the case with Dr. Maddox on-call for cardiology. She recommended that the patient be admitted to the hospital for echocardiogram, stress test, trending troponins. She recommended switching his atenolol to metoprolol succinate. He was given a dose of that here in the ER. She also recommended diuretics. He was given Lasix. She also recommended heparinizing the patient as he is going to need anticoagulation in the intermediate accountant for his atrial flutter however after discussion with Dr. Chang who is the hospitalist who will admit the patient we will hold on starting heparin for now. I did discuss the need for admission with the patient. He expressed understanding and agreement. Discharge Plan Departure Patient Disposition: Admitted As Inpatient Clinical Impression: Atrial flutter, Dyspnea on exertion Admit Date/Time: 11/09/22 20:44 Admit Provider: Marvin Kumar
[2022-11-09] MEDS: METOPROLOL ER 25 MG TABLET PO (19:39)
[2022-11-09] MEDS: FUROSEMIDE 40 MG/4 ML VIAL IV (19:39)
--- NOTE | 2022-11-09 22:46 | PM.HP.1 ---
History of Present Illness History of Present Illness Date Patient Seen: 11/09/22 Time Patient Seen: 22:46 Chief complaint: SOB, high pulse, sent by pcp Narrative: 77 y/o M was sent by PCP after presenting with increasing sob and weakness. Pt has been having GIVENS which has been worsening. Denied any fever or chest pain. In the ED he was found to be tachycardic and EKG showed aflutter which is new for him. His BNP also returned elevated. He denies any orthpnea or leg swellig. 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 pt says he feels better since arrival. He did receive one dose of iv Lasix per cards recommendation. [facility] Medical History Agent orange exposure Coronary artery disease Obesity (BMI 30-39.9) Obstructive sleep apnea of adult Primary insomnia Prostate cancer Snoring Surgical History History of lumbar fusion Social History household members: spouse Smoking Status: Former smoker alcohol intake: former substance use type: does not use Meds Home Medications and Allergies Home Medications Medication Instructions Recorded Confirmed Type Respironics DreamStation CPAP #1 ea 12/15/21 12/15/21 History atenolol 25 mg tablet 25 mg PO DAILY 11/09/22 11/09/22 History atorvastatin 40 mg tablet 40 mg PO DAILY 11/09/22 11/09/22 History clopidogrel 75 mg tablet 75 mg PO DAILY 11/09/22 11/09/22 History Allergies Allergy/AdvReac Type Severity Reaction Status Date / Time No Known Drug Allergies Allergy Verified 11/09/22 12:19 Review of Systems Review of Systems Narrative: negative except for what was mentioned in HPI Exam Vital Signs (past 8 hours): - 11/09/22 15:00 11/09/22 15:24 11/09/22 15:24 Pulse Rate 116 H 114 H Respiratory Rate Blood Pressure 134/88 Pulse Oximetry 98 98 11/09/22 15:30 11/09/22 15:30 11/09/22 16:01 Pulse Rate 113 H Respiratory Rate 31 H Blood Pressure 124/92 H 127/83 Pulse Oximetry 98 11/09/22 16:01 11/09/22 16:30 11/09/22 16:30 Pulse Rate 112 H 114 H Respiratory Rate 20 25 H Blood Pressure 128/90 Pulse Oximetry 98 99 11/09/22 17:00 11/09/22 17:00 11/09/22 17:30 Pulse Rate 115 H Respiratory Rate Blood Pressure 122/87 112/86 Pulse Oximetry 96 11/09/22 17:30 11/09/22 18:00 11/09/22 18:00 Pulse Rate 116 H 115 H Respiratory Rate 26 H 23 Blood Pressure 121/61 Pulse Oximetry 98 98 11/09/22 18:30 11/09/22 18:30 11/09/22 19:00 Pulse Rate 116 H Respiratory Rate 26 H Blood Pressure 129/84 109/79 Pulse Oximetry 99 11/09/22 19:00 11/09/22 19:39 11/09/22 20:10 Pulse Rate 116 H 116 H 118 H Respiratory Rate 23 Blood Pressure 121/80 134/88 Pulse Oximetry 98 11/09/22 19:30 11/09/22 19:30 11/09/22 20:03 Pulse Rate 115 H 117 H Respiratory Rate 31 H Blood Pressure 121/80 Pulse Oximetry 98 97 11/09/22 20:35 11/09/22 20:36 11/09/22 20:36 Pulse Rate 116 H 116 H Respiratory Rate 27 H 28 H Blood Pressure 134/88 Pulse Oximetry 98 98 11/09/22 21:00 11/09/22 21:03 11/09/22 21:03 Pulse Rate 116 H 117 H Respiratory Rate 32 H 24 Blood Pressure 120/84 Pulse Oximetry 97 96 11/09/22 21:30 11/09/22 21:30 Pulse Rate 118 H Respiratory Rate 22 Blood Pressure 105/82 Pulse Oximetry 95 Oxygen Delivery Method Room Air Const General: comfortable HENMT Head: normal to inspection Eyes General: appearance normal, both eyes and all related structures Resp Auscultation: clear to auscultation bilaterally Cardio Other: fast and irregular heart beats GI Inspection: normal to inspection Neuro General: patient alert, patient awake and patient oriented x3 Objective ECG Impression: atrial flutter Imaging Chest x-ray: My impression: cardiomegaly without pulm edema Labs 11/09/22 12:30 11/09/22 12:30 Labs: Laboratory Results - last 24 hr 11/09/22 11/09/22 11/09/22 12:30 12:30 12:30 WBC 5.5 RBC 4.98 Hgb 15.2 Hct 44.8 MCV 90.1 MCH 30.6 MCHC 34.0 RDW 13.7 Plt Count 187 Neut % (Auto) 67.8 Lymph % (Auto) 17.0 L [place] % (Auto) 11.9 Eos % (Auto) 2.4 Baso % (Auto) 0.9 Neut # (Auto) 3800 Lymph # (Auto) 900 L [place] # (Auto) 700 Eos # (Auto) 100 Baso # (Auto) 0 PT 14.3 H INR 1.2 APTT 33 Sodium 139 Potassium 4.2 Chloride 105 Carbon Dioxide 27 BUN 19 Creatinine 1.25 Estimated GFR 59 L BUN/Creatinine Ratio 15.2 Glucose 98 Calcium 8.9 Magnesium 2.0 Total Bilirubin 2.6 H AST 25 ALT 21 Alkaline Phosphatase 62 Total Creatine Kinase 86 Troponin I < 0.012 NT-Pro-B Natriuret Pep Total Protein 7.3 Albumin 4.3 Globulin 3.0 Albumin/Globulin Ratio 1.4 Lipase 50 TSH 11/09/22 11/09/22 12:30 12:30 WBC RBC Hgb Hct MCV MCH MCHC RDW Plt Count Neut % (Auto) Lymph % (Auto) [place] % (Auto) Eos % (Auto) Baso % (Auto) Neut # (Auto) Lymph # (Auto) [place] # (Auto) Eos # (Auto) Baso # (Auto) PT INR APTT Sodium Potassium Chloride Carbon Dioxide BUN Creatinine Estimated GFR BUN/Creatinine Ratio Glucose Calcium Magnesium Total Bilirubin AST ALT Alkaline Phosphatase Total Creatine Kinase Troponin I NT-Pro-B Natriuret Pep 2350 H Total Protein Albumin Globulin Albumin/Globulin Ratio Lipase TSH 1.86 Assessment & Plan Assessment & Plan narrative: 77 y/o m # new atrial flutter: telemtery, metoprolol, lovenox, cardiology consulted, echo # CHF? Check echo, metoprolol, cards consulted # hx of CAD: continue asa, plavix, lipitor, recheck troponin, tele, echo # hx of NORMA: CPAP at night # Hx of HTN: metoprolol, monitor # DVT Prophylaxis: lovenox
[2022-11-10] VITALS (35 sets, daily range): BP systolic 101–130; BP diastolic 71–94; PULSE 113–119; RESP 17–41; TEMP 36.4; O2SAT 92–100; BMI 35.7
[2022-11-10] MEDS: ENOXAPARIN 40 MG/0.4 ML SYRINGE 125 MG SUBCUT (01:01)
[2022-11-10 02:58] LABS: Add Manual Diff / Slide Review NO; Basophils Absolute Auto 0 /uL (0-100); Basophils Percent Auto 0.5 % (0-2); Eosinophils Absolute Auto 100 /uL (0-450); Eosinophils Percent Auto 1.6 % (2-4); Hematocrit 45.9 % (41-53); Hemoglobin 15.8 g/dL (13.5-17.5); Lymphocytes Absolute Auto 1000 /uL (1100-4500); Mean Corpuscular HGB Conc 34.4 % (30-36); Mean Corpuscular Hemoglobin 30.9 PG (26-34); Mean Corpuscular Volume 89.6 fL (80-100); Monocytes Absolute Auto 800 /uL (0-900); Monocytes Percent Auto 9.8 % (3-14); Neutrophils Absolute Auto 5900 /uL (1500-7000); Neutrophils Percent Auto 75.1 % (50-75); Platelet Count 207 X10^3/uL (150-400); Red Blood Cell Count 5.13 X10^6/uL (4.5-5.9); Red Cell Distribution Width 14.2 % (11.6-14.8); White Blood Cell Count 7.8 X10^3/uL (4.5-11.0)
[2022-11-10 03:06] LABS: BUN Creatinine Ratio 15.7 (6-22); Blood Urea Nitrogen 19 mg/dL (9-20); Calcium 9.1 mg/dL (8.4-10.2); Carbon Dioxide 26 mmol/L (22-32); Chloride 105 mmol/L (98-107); Estimated Glomerular Filt Rate > 60 mL/min (>60); Glucose 107 mg/dL (80-110); HEMOLYSIS 25 (0-50); Potassium 3.9 mmol/L (3.4-5.1); Sodium 140 mmol/L (137-145)
[2022-11-10 03:16] LABS: PTT Partial Thromboplastin Tim 40 SECONDS (26-36)
[2022-11-10 03:32] LABS: Troponin I < 0.012 ng/mL (0.01-0.034)
--- NOTE | 2022-11-10 07:27 | DI.ECHO.S_ITS ---
[place] [facility]---------+ [facility] +---------+ : : [address] : : : : [id number] : : : : Phone: [phone] Echocardiogram Report + + :Name: YELENA HEREDIA Study Date: 11/10/2022 Height: 73 in : :[facility] ReadingLocation: Weight: 280 lb : : Gender: Male BSA: 2.5 m2 : :: 1945 Age: 77 yrs BP: 105/82 mmHg: :Reason For Study: CONGESTIVE HEART FAILURE : :Ordering Physician: VAHID, : :CHRISTINA Elam MD Performed By: Jody Jefferson : :Referring: CHRISTINA REDDING MD : + + Interpretation Summary Left ventricular ejection fraction is estimated to be 25 +/- 5%. There is moderate to severe global hypokinesis of the left ventricle. The right ventricle is mildly dilated. There is mild mitral regurgitation. There is mild tricuspid regurgitation. The right ventricular systolic pressure is estimated to be at least 21 mmHg based on an estimated right atrial pressure of 3 mm Hg. Procedure: A two-dimensional transthoracic echocardiogram with color flow and Doppler was performed. The study quality was technically difficult. A contrast injection of Definity was performed to improve assessment of LV function. The heart rate ranged between 108-124 bpm during the study. Left Ventricle: The left ventricle is mild-moderately dilated. The estimated left ventricular end diastolic volume is 195 ml. There is mild concentric left ventricular hypertrophy. Left ventricular ejection fraction is estimated to be 25 +/- 5%. There is moderate to severe global hypokinesis of the left ventricle. Right Ventricle: The right ventricle is mildly dilated. Right ventricular systolic function is borderline reduced. Atria: The left atrium is severely dilated. The right atrium is moderately dilated. There is no Doppler evidence for an interatrial shunt. Mitral Valve: The mitral valve is normal in structure and function. There is mild mitral regurgitation. Aortic Valve: The aortic valve is grossly normal. The aortic valve opens well. There is no aortic valve stenosis. No aortic regurgitation is present. Tricuspid Valve: The tricuspid valve is normal in structure and function. There is mild tricuspid regurgitation. The right ventricular systolic pressure is estimated to be at least 21 mmHg based on an estimated right atrial pressure of 3 mm Hg. Pulmonic Valve: The pulmonic valve is not well visualized. There is no pulmonic valvular regurgitation. Great Vessels: The aortic root is mildly dilated. The dimensions of the ascending aorta are normal. The IVC is of normal diameter and collapses greater than 50% with a sniff. This suggests a low right atrial pressure of 3 mm Hg. Pericardium/ Pleura There is no pericardial effusion. There is no pleural effusion. MMode/2D Measurements & Calculations LVIDd: 6.2 cm LVOT diam: 2.7 cm LVIDs: 5.4 cm Ao root diam: 4.5 cm FS: 13.0 % asc Aorta Diam: 3.5 cm EPSS: 1.9 cm IVSd: 1.0 cm LVPWd: 1.1 cm LV arreola. diameter/BSA (cm/m^2): 2.5 LV sys. diameter/BSA (cm/m^2): 2.2 LA A2 area: 31.9 cm2 RA long axis: 6.2 cm LA A4 area: 31.3 cm2 RA area: 27.9 cm2 LA length (vol): 6.9 cm RA vol: 106.7 ml LA vol: 122.5 ml RA : 43.0 ml/m2 LA vol index: 49.3 ml/m2 IVC diam: 1.4 cm RVD1 (basal): 4.5 cm RVD2 (mid): 3.7 cm TAPSE: 1.8 cm Doppler Measurements & Calculations Ao V2 max: 74.0 cm/sec LVOT Max Apolinar: 44.8 cm/sec Ao V2 mean: 58.3 cm/sec LV V1 max P.80 mmHg Ao max P.2 mmHg LV V1 VTI: 6.7 cm Ao mean P.4 mmHg EDIN(I,D): 3.4 cm2 Ao V2 VTI: 11.3 cm EDIN(V,D): 3.5 cm2 sev ratio: 0.59 EDNI indexed to BSA (cm^2/m^2): 1.4 MV E max apolinar: 64.1 cm/sec TR max apolinar: 216.6 cm/sec MV A max apolinar: 1.5 cm/sec TR max P.8 mmHg MV E/A: 43.2 Med Peak E' Apolinar: 5.7 cm/sec E/E' med: 11.3 Lat Peak E' Apolinar: 3.8 cm/sec E/E' lat: 16.8 E/e' average: 14.0 MV dec time: 0.18 sec SVLVOT): 38.3 ml Reading Physician:04:47 PM
--- NOTE | 2022-11-10 07:27 | DI.NM.S_ITS ---
PROCEDURE: NM ANDERSON PERF SPECT R&S PHARM Rest and pharmacological stress myocardial perfusion SPECT with gated imaging and ejection fraction RADIOPHARMACEUTICAL: 27.3 mCi Tc-99m tetrafosmin IV at rest and 27.5 mCi Tc-99m tetrafosmin IV at peak effect of pharmacological stress. Jpp-fly-guaqvsrq was performed. INDICATIONS: Atrial flutter TECHNIQUE: Radiopharmaceutical was injected at peak stress test, and also at rest. SPECT images were obtained. SPECT myocardial perfusion images were displayed in short axis, horizontal long axis, and vertical long axis views. Gated images were reviewed using [employer] software. COMPARISON: None. CARDIAC STRESS: A pharmacologic stress test was performed under the supervision of an attending staff, using an infusion of lexiscan 0.4mg IV X1. Hemodynamic data: There is normal blood pressure and heart rate response to pharmacologic stress. Symptoms: The patient denied anginal chest pain. Aminophylline: none EKG: Atypical atrial flutter at baseline. No diagnostic changes of ischemia; occasional PVCs during recovery. FINDINGS: Raw data: There is good myocardial uptake of radiotracer. No significant motion artifacts. Dqil-fa-bnhsw ratio is 0.35 (normal is less than 0.38 for tetrafosmin tracer). Left ventricle function: Gated images demonstrate normal left ventricular wall thickening. No segmental wall motion abnormalities. No transient ischemic dilation; TID is 1.08 (normal less than 1.3). Left ventricle resting end diastolic volume is 194mL. Left ventricle stress ejection fraction is 31%; normal range is above 45%. Myocardial perfusion: There is a moderately intense fixed inferior wall defect extending to apex suggesting prior non-transmural infarction with some artifact as prone imaging improves the perfusion defect. No ischemia. IMPRESSION: Abnormal nuclear stress test consistent with prior infarction and artifact. No ischemia. 1) There is a moderately intense fixed inferior wall defect extending to apex suggesting prior non-transmural infarction with some artifact as prone imaging improves the perfusion defect. No ischemia. 2) Enlarged left ventricle (resting EDV 194cc) with significantly reduced systolic function (EF post stress 31%). 3) No ST changes with lexiscan. 4) No angina during the study. 5) Compared to the nuclear stress test done 04/12/2010, reduced systolic function is present on this study. Dictated by: Melinda Marshall MD on 11/13/2022 at 13:06 Approved by: Melinda Marshall MD on 11/13/2022 at 13:10
--- NOTE | 2022-11-10 07:45 | PC.NURSE ---
0745: Pt resting comfortably. Denies SOB, CP, or any other concerning symptoms.
[2022-11-10] MEDS: FUROSEMIDE 40 MG/4 ML VIAL IV (08:42)
[2022-11-10 08:58] LABS: PTT Partial Thromboplastin Tim 42 SECONDS (26-36)
[2022-11-10 09:41] LABS: Troponin I < 0.012 ng/mL (0.01-0.034)
--- NOTE | 2022-11-10 11:48 | PC.NURSE ---
Pt transported to IR. Called report to Hannah CULLEN. IR contacted to transport pt directly to room 221 after procedure complete.
--- NOTE | 2022-11-10 12:27 | PC.NURSE ---
Day shift: Pt in AC unit room at approx 1215 from cardiac stress test. Denies any chest pain or pain. Also denies any SOB. Does endorse being very hungry. Being placed on tele at this time. Spouse in room for support. HR tachy. Other VS WNL.
[2022-11-10] MEDS: METOPROLOL IR 25 MG TABLET PO (12:50)
--- NOTE | 2022-11-10 16:15 | PM.PN.1 ---
Subjective Subjective Interval history: Patient underwent stress test and feels fine. No CP or dyspnea during the study. Exam Vital Signs (past 8 hours): - 11/10/22 08:30 11/10/22 08:48 11/10/22 08:48 Temperature Pulse Rate 116 H 116 H Respiratory Rate 27 H 26 H Blood Pressure 118/86 Pulse Oximetry 98 Oxygen Delivery Method Oxygen Flow Rate 11/10/22 09:00 11/10/22 09:00 11/10/22 09:32 Temperature Pulse Rate 117 H 116 H Respiratory Rate 23 33 H Blood Pressure 116/81 Pulse Oximetry 100 98 Oxygen Delivery Method Oxygen Flow Rate 11/10/22 09:33 11/10/22 09:33 11/10/22 10:00 Temperature Pulse Rate 117 H 118 H Respiratory Rate 27 H 26 H Blood Pressure 120/86 Pulse Oximetry 98 96 Oxygen Delivery Method Oxygen Flow Rate 11/10/22 10:02 11/10/22 10:02 11/10/22 10:30 Temperature Pulse Rate 118 H Respiratory Rate 24 Blood Pressure 114/80 109/80 Pulse Oximetry 97 Oxygen Delivery Method Oxygen Flow Rate 11/10/22 10:30 11/10/22 11:00 11/10/22 11:01 Temperature Pulse Rate 119 H 115 H 115 H Respiratory Rate 31 H 31 H Blood Pressure Pulse Oximetry 96 96 96 Oxygen Delivery Method Oxygen Flow Rate 11/10/22 11:01 11/10/22 12:00 11/10/22 15:02 Temperature 97.5 F L Pulse Rate 117 H Respiratory Rate 17 Blood Pressure 111/83 117/85 Pulse Oximetry 95 95 Oxygen Delivery Method Room Air Oxygen Flow Rate 0 Oxygen Delivery Method Room Air Oxygen Flow Rate 0 Const General: comfortable HENMT Head: normal to inspection Eyes General: appearance normal, both eyes and all related structures Resp Auscultation: clear to auscultation bilaterally Cardio Other: fast and irregular heart beats GI Inspection: normal to inspection Neuro General: patient alert, patient awake and patient oriented x3 Objective Labs 11/10/22 02:40 11/10/22 02:40 Labs: Laboratory Results - last 24 hr 11/10/22 11/10/22 11/10/22 02:40 02:40 02:40 WBC 7.8 RBC 5.13 Hgb 15.8 Hct 45.9 MCV 89.6 MCH 30.9 MCHC 34.4 RDW 14.2 Plt Count 207 Neut % (Auto) 75.1 H Lymph % (Auto) 13.0 L [place] % (Auto) 9.8 Eos % (Auto) 1.6 L Baso % (Auto) 0.5 Neut # (Auto) 5900 Lymph # (Auto) 1000 L [place] # (Auto) 800 Eos # (Auto) 100 Baso # (Auto) 0 APTT 40 H D Sodium 140 Potassium 3.9 Chloride 105 Carbon Dioxide 26 BUN 19 Creatinine 1.21 Estimated GFR > 60 BUN/Creatinine Ratio 15.7 Glucose 107 Calcium 9.1 Troponin I 11/10/22 11/10/22 11/10/22 02:40 08:42 08:59 WBC RBC Hgb Hct MCV MCH MCHC RDW Plt Count Neut % (Auto) Lymph % (Auto) [place] % (Auto) Eos % (Auto) Baso % (Auto) Neut # (Auto) Lymph # (Auto) [place] # (Auto) Eos # (Auto) Baso # (Auto) APTT 42 H Sodium Potassium Chloride Carbon Dioxide BUN Creatinine Estimated GFR BUN/Creatinine Ratio Glucose Calcium Troponin I < 0.012 < 0.012 [facility] Medical History Agent orange exposure Coronary artery disease Obesity (BMI 30-39.9) Obstructive sleep apnea of adult Primary insomnia Prostate cancer Snoring Surgical History History of lumbar fusion Social History household members: spouse Smoking Status: Former smoker alcohol intake: former substance use type: does not use Assessment & Plan Assessment & Plan narrative: # new atrial flutter -telemetry, uptitrating metoprolol to 50mg q6h, eliquis started -echo and stress test ordered per cardiology -stress test with perfusion defects seen on prior stress images, which may be ischemia but need prone images which can't be done until sunday -if not responding to metop, may require dilt drip or amio drip # CHF? -check echo,started IV lasix # hx of CAD -changed asa to eliquis, continue plavix, lipitor, -trops neg x3 # hx of NORMA -CPAP at night # Hx of HTN -metoprolol, monitor DVT proph: Eliquis Dispo: Pending improvement in rate control and completion of stress prone images. Quality VTE Deep Vein Thrombosis/Pulmonary Embolism Present on Admission: No
[2022-11-10] MEDS: METOPROLOL IR 25 MG TABLET 50 MG PO ×2 (17:04→23:10)
[2022-11-10] MEDS: APIXABAN 5 MG TABLET PO (20:58)
[2022-11-10] MEDS: CLOPIDOGREL 75 MG TABLET PO (20:59)
[2022-11-10] MEDS: ATORVASTATIN 20 MG TABLET 40 MG PO (20:59)
[2022-11-10] MEDS: SODIUM CHLORIDE 0.9% FLUSH 10 ML IV (21:00)
[2022-11-11] VITALS (36 sets, daily range): BP systolic 73–133; BP diastolic 47–78; PULSE 105–115; RESP 16–35; TEMP 36.4–36.6; O2SAT 94–98
[2022-11-11 05:00] LABS: Add Manual Diff / Slide Review NO; Basophils Absolute Auto 100 /uL (0-100); Eosinophils Absolute Auto 200 /uL (0-450); Eosinophils Percent Auto 2.7 % (2-4); Hematocrit 45.2 % (41-53); Hemoglobin 15.4 g/dL (13.5-17.5); Lymphocytes Absolute Auto 1300 /uL (1100-4500); Lymphocytes Percent Auto 19.8 % (25-40); Mean Corpuscular Hemoglobin 30.6 PG (26-34); Mean Corpuscular Volume 89.9 fL (80-100); Monocytes Absolute Auto 800 /uL (0-900); Monocytes Percent Auto 11.8 % (3-14); Neutrophils Absolute Auto 4200 /uL (1500-7000); Neutrophils Percent Auto 63.7 % (50-75); Platelet Count 184 X10^3/uL (150-400); Red Blood Cell Count 5.02 X10^6/uL (4.5-5.9); Red Cell Distribution Width 13.8 % (11.6-14.8); White Blood Cell Count 6.6 X10^3/uL (4.5-11.0)
[2022-11-11 05:21] LABS: BUN Creatinine Ratio 19.4 (6-22); Blood Urea Nitrogen 27 mg/dL (9-20); Calcium 8.7 mg/dL (8.4-10.2); Carbon Dioxide 26 mmol/L (22-32); Chloride 102 mmol/L (98-107); Estimated Glomerular Filt Rate 52 mL/min (>60); Glucose 101 mg/dL (80-110); HEMOLYSIS < 15 (0-50); Potassium 3.8 mmol/L (3.4-5.1); Sodium 138 mmol/L (137-145)
[2022-11-11] MEDS: METOPROLOL IR 25 MG TABLET 50 MG PO ×2 (05:36→12:01)
[2022-11-11] MEDS: APIXABAN 5 MG TABLET PO ×2 (08:48→20:50)
[2022-11-11] MEDS: SODIUM CHLORIDE 0.9% FLUSH 10 ML IV (08:48)
[2022-11-11] MEDS: FUROSEMIDE 40 MG/4 ML VIAL IV (08:48)
[2022-11-11] MEDS: dilTIAZem 5 MG/ML SDV 10 MG IV (11:30)
[2022-11-11] MEDS: AMIODARONE 150 MG/100 ML PIGGYBACK 600 MG IV (12:24)
[2022-11-11] MEDS: AMIODARONE 360 MG/200 ML PIGGYBACK 33.33 MG IV (12:50)
--- NOTE | 2022-11-11 13:01 | PC.NURSE ---
Day shift note: Pt moved to ICU to be placed on Amiodarone gtt, heart rhythm A flutter with BBB HR 110-115. Amiodarone bolus administered per policy, Amiodarone gtt infusing at 33.3ml/hr currently. Oriented to room and call light system, VSS, sitting up in chair with at bedside. Pt able to make needs known, no further needs at this time
[2022-11-11 14:06] LABS: MRSA (Nasal) PCR Not Detected (Not Detect)
--- NOTE | 2022-11-11 15:23 | PM.PN.1 ---
Subjective Subjective Interval history: He does not feeling a racing heart, chest pain, or shortness of breath. Despite increasing doses of metoprolol, and also dosing IV diltiazem he remains tachycardic. Exam Vital Signs (past 8 hours): - 11/11/22 08:50 11/11/22 11:00 11/11/22 11:05 Temperature 97.6 F Pulse Rate 114 H 115 H Respiratory Rate 22 Blood Pressure 101/68 109/77 Pulse Oximetry 96 98 Oxygen Delivery Method Room Air Oxygen Flow Rate 0 11/11/22 12:46 11/11/22 12:47 11/11/22 12:47 Temperature Pulse Rate 109 H 109 H Respiratory Rate 30 H 31 H Blood Pressure 108/54 L Pulse Oximetry 98 97 Oxygen Delivery Method Oxygen Flow Rate 11/11/22 12:49 11/11/22 12:49 11/11/22 13:00 Temperature Pulse Rate 109 H Respiratory Rate 27 H Blood Pressure 93/63 92/61 Pulse Oximetry 97 Oxygen Delivery Method Oxygen Flow Rate 11/11/22 13:00 11/11/22 13:30 11/11/22 14:00 Temperature Pulse Rate 111 H 111 H Respiratory Rate 28 H 35 H Blood Pressure 88/62 L Pulse Oximetry 96 96 Oxygen Delivery Method Oxygen Flow Rate 11/11/22 14:00 Temperature Pulse Rate 109 H Respiratory Rate 30 H Blood Pressure Pulse Oximetry 97 Oxygen Delivery Method Oxygen Flow Rate Oxygen Delivery Method Room Air Oxygen Flow Rate 0 Narrative Exam Narrative: GEN: no acute distress PULM: clear bilaterally CV: irregular, tachycardic EXT: warm and well perfused, no edema Objective Labs 11/11/22 04:45 11/11/22 04:45 Labs: Laboratory Results - last 24 hr 11/11/22 11/11/22 11/11/22 04:45 04:45 12:26 WBC 6.6 RBC 5.02 Hgb 15.4 Hct 45.2 MCV 89.9 MCH 30.6 MCHC 34.0 RDW 13.8 Plt Count 184 Neut % (Auto) 63.7 Lymph % (Auto) 19.8 L [place] % (Auto) 11.8 Eos % (Auto) 2.7 Baso % (Auto) 2.0 Neut # (Auto) 4200 Lymph # (Auto) 1300 [place] # (Auto) 800 Eos # (Auto) 200 Baso # (Auto) 100 Sodium 138 Potassium 3.8 Chloride 102 Carbon Dioxide 26 BUN 27 H Creatinine 1.39 H Estimated GFR 52 L BUN/Creatinine Ratio 19.4 Glucose 101 Calcium 8.7 Nasal Screen MRSA (PCR) Not detected PFSH Medical History Agent orange exposure Coronary artery disease Obesity (BMI 30-39.9) Obstructive sleep apnea of adult Primary insomnia Prostate cancer Snoring Surgical History History of lumbar fusion Social History household members: spouse Smoking Status: Former smoker alcohol intake: former substance use type: does not use Assessment & Plan Assessment & Plan narrative: # new atrial flutter with likely tachycardia induced cardiomyopathy and CHF -telemetry -eliquis started -ECHO showed EF 25%, dilated RV, mild MR/TR -stress test with perfusion defects seen on prior stress images, which may be ischemia but need prone images which can't be done until sunday -trialed oral metoprolol and IV dilt with minimal response from heart rate -keep on metoprolol for low EF -start amio gtt for atrial flutter # hx of CAD -changed asa to eliquis, continue plavix, lipitor, -trops neg x3 # hx of NORMA -CPAP at night # Hx of HTN -metoprolol, monitor DVT proph: Eliquis Dispo: Pending improvement in rate control and completion of stress prone images. Quality VTE Deep Vein Thrombosis/Pulmonary Embolism Present on Admission: No
--- NOTE | 2022-11-11 15:27 | CM.DANOTE ---
Initial DCP Assessment Note Pt is a 77 yo male, resident of [place], presents with SOB, atrial flutter, moved to ICU today for amio drip. Discharge pending improvement in rate control PCP: Leroy More Payer: [facility] Met w/patient this afternoon to introduce role. Patient lives w/spouse, [place], denies needs from this [employer] No barriers identified at this time to patient's safe discharge home w/family to assist; close outpatient f/u recommended. CLINTON Ruano Discharge Planning/Care Management CM Discharge Assessment Start: 11/11/22 15:26 Freq: Status: Active Protocol: Document 11/11/22 15:26 DHAVAL (Rec: 11/11/22 15:27 [id number]) Discharge Planning Assessment Assigned Gym Attendant CLINTON Hebert DPOA/Assigned Designee Name Natasha Keating, spouse Contact Information [phone] Advance Directives? No Advance Directives on File No History Provided By Patient,Medical Record Prior Living Arrangements House Household Members spouse Type of transporation used prior to Drives own vehicle admit Independent with ADL's Yes Is patient alert and oriented? Yes Barriers to Discharge No Discharge Plan Home Transportation Arrangement Family to provide transport. Referrals Initiated None needed
[2022-11-11] MEDS: AMIODARONE 360 MG/200 ML PIGGYBACK 16.7 MG IV (17:58)
[2022-11-11] MEDS: CLOPIDOGREL 75 MG TABLET PO (20:49)
[2022-11-11] MEDS: ATORVASTATIN 20 MG TABLET 40 MG PO (20:49)
[2022-11-12] VITALS (56 sets, daily range): BP systolic 99–127; BP diastolic 64–83; PULSE 103–109; RESP 18–40; TEMP 35.9–36.6; O2SAT 88–98
[2022-11-12 05:47] LABS: Add Manual Diff / Slide Review NO; Basophils Absolute Auto 0 /uL (0-100); Basophils Percent Auto 0.4 % (0-2); Eosinophils Absolute Auto 200 /uL (0-450); Eosinophils Percent Auto 2.9 % (2-4); Hemoglobin 15.4 g/dL (13.5-17.5); Lymphocytes Absolute Auto 1300 /uL (1100-4500); Lymphocytes Percent Auto 20.7 % (25-40); Mean Corpuscular HGB Conc 34.2 % (30-36); Mean Corpuscular Hemoglobin 30.5 PG (26-34); Mean Corpuscular Volume 89.2 fL (80-100); Monocytes Absolute Auto 700 /uL (0-900); Monocytes Percent Auto 11.8 % (3-14); Neutrophils Absolute Auto 4000 /uL (1500-7000); Neutrophils Percent Auto 64.2 % (50-75); Platelet Count 171 X10^3/uL (150-400); Red Blood Cell Count 5.05 X10^6/uL (4.5-5.9); Red Cell Distribution Width 13.9 % (11.6-14.8); White Blood Cell Count 6.2 X10^3/uL (4.5-11.0)
[2022-11-12 05:52] LABS: BUN Creatinine Ratio 22.8 (6-22); Blood Urea Nitrogen 33 mg/dL (9-20); Calcium 8.8 mg/dL (8.4-10.2); Carbon Dioxide 29 mmol/L (22-32); Chloride 102 mmol/L (98-107); Estimated Glomerular Filt Rate 49 mL/min (>60); Glucose 96 mg/dL (80-110); HEMOLYSIS < 15 (0-50); Potassium 3.5 mmol/L (3.4-5.1); Sodium 137 mmol/L (137-145)
[2022-11-12] MEDS: AMIODARONE 180 MG/100 ML PIGGYBACK 16.7 MG IV (05:55)
[2022-11-12] MEDS: POTASSIUM CHLORIDE 20 MEQ TAB 40 MEQ PO (07:47)
[2022-11-12] MEDS: APIXABAN 5 MG TABLET PO ×2 (08:13→20:13)
[2022-11-12] MEDS: METOPROLOL IR 50 MG TABLET PO ×3 (08:19→18:20)
--- NOTE | 2022-11-12 12:31 | P.PN_ITS ---
Subjective Subjective Interval history: He feels his shortness of breath is improved. He does not feel palpitations or chest pain.. Exam Vital Signs (past 8 hours): - 11/12/22 05:00 11/12/22 05:30 11/12/22 06:00 Pulse Rate 107 H 106 H 106 H Respiratory Rate 23 18 27 H Blood Pressure Pulse Oximetry 96 96 97 Oxygen Delivery Method 11/12/22 06:30 11/12/22 07:00 11/12/22 07:30 Pulse Rate 107 H 108 H 106 H Respiratory Rate 24 24 21 Blood Pressure Pulse Oximetry 96 97 95 Oxygen Delivery Method 11/12/22 08:00 11/12/22 08:00 11/12/22 08:30 Pulse Rate 108 H 109 H Respiratory Rate 24 28 H Blood Pressure Pulse Oximetry 96 97 Oxygen Delivery Method Room Air 11/12/22 08:42 11/12/22 08:42 11/12/22 09:00 Pulse Rate 108 H 109 H Respiratory Rate 25 H 33 H Blood Pressure 116/83 Pulse Oximetry 97 96 Oxygen Delivery Method 11/12/22 09:30 11/12/22 10:00 11/12/22 11:45 Pulse Rate 109 H 109 H Respiratory Rate 29 H 28 H Blood Pressure Pulse Oximetry 97 96 Oxygen Delivery Method Room Air 11/12/22 10:30 11/12/22 11:00 11/12/22 11:02 Pulse Rate 107 H 106 H Respiratory Rate 30 H 26 H Blood Pressure 110/75 Pulse Oximetry 96 96 Oxygen Delivery Method 11/12/22 11:02 11/12/22 11:30 11/12/22 12:00 Pulse Rate 105 H 104 H Respiratory Rate 28 H 28 H Blood Pressure 103/80 Pulse Oximetry 96 96 Oxygen Delivery Method 11/12/22 12:00 Pulse Rate 104 H Respiratory Rate 28 H Blood Pressure Pulse Oximetry 96 Oxygen Delivery Method Oxygen Delivery Method Room Air Oxygen Flow Rate 0 Narrative Exam Narrative: GEN: no acute distress PULM: clear bilaterally CV: irregular, tachycardic EXT: warm and well perfused, no edema Objective Labs 11/12/22 04:25 11/12/22 04:25 Labs: Laboratory Results - last 24 hr 11/11/22 11/12/22 11/12/22 12:26 04:25 04:25 WBC 6.2 RBC 5.05 Hgb 15.4 Hct 45.0 MCV 89.2 MCH 30.5 MCHC 34.2 RDW 13.9 Plt Count 171 Neut % (Auto) 64.2 Lymph % (Auto) 20.7 L [place] % (Auto) 11.8 Eos % (Auto) 2.9 Baso % (Auto) 0.4 Neut # (Auto) 4000 Lymph # (Auto) 1300 [place] # (Auto) 700 Eos # (Auto) 200 Baso # (Auto) 0 Sodium 137 Potassium 3.5 Chloride 102 Carbon Dioxide 29 BUN 33 H Creatinine 1.45 H Estimated GFR 49 L BUN/Creatinine Ratio 22.8 H Glucose 96 Calcium 8.8 Nasal Screen MRSA (PCR) Not detected PFSH Medical History Agent orange exposure Coronary artery disease Obesity (BMI 30-39.9) Obstructive sleep apnea of adult Primary insomnia Prostate cancer Snoring Surgical History History of lumbar fusion Social History household members: spouse Smoking Status: Former smoker alcohol intake: former substance use type: does not use Assessment & Plan Assessment & Plan narrative: # new atrial flutter with likely tachycardia induced cardiomyopathy and CHF -telemetry -eliquis started -ECHO showed EF 25%, dilated RV, mild MR/TR -stress test with perfusion defects seen on prior stress images, which may be ischemia but need prone images which can't be done until sunday -trialed oral metoprolol and IV dilt with minimal response from heart rate -keep on metoprolol for low EF -did get amio load for atrial flutter with minimal improvement of heart rate -consult cardiology for further recs for treatment # hx of CAD -changed asa to eliquis, continue plavix, lipitor, -trops neg x3 # hx of NORMA -CPAP at night # Hx of HTN -metoprolol, monitor DVT proph: Eliquis Dispo: Pending improvement in rate control and completion of stress prone images. Quality VTE Deep Vein Thrombosis/Pulmonary Embolism Present on Admission: No
[2022-11-12] MEDS: DIGOXIN 500 MCG/2 ML AMPUL 250 MCG IV (12:43)
--- NOTE | 2022-11-12 13:18 | CM.DPC ---
DCP Cont: Per MD, pt's HR not controlled even after amio drip and consulted Bolt Threader and recommendation is 24 hrs more of Amio drip and if still not controlled then possible need for hospital transfer for cardioversion. Pt not medically stable to d/c yet today. Plan: SW to follow closely tomorrow to determine if HR controlled or if attempts at hospital transfer for Bolt Threader is needed. CLINTON Smith
[2022-11-12] MEDS: AMIODARONE 360 MG/200 ML PIGGYBACK 16.7 MG IV (13:32)
[2022-11-12] MEDS: CLOPIDOGREL 75 MG TABLET PO (20:13)
[2022-11-12] MEDS: ATORVASTATIN 20 MG TABLET 40 MG PO (20:13)
[2022-11-12] MEDS: SODIUM CHLORIDE 0.9% FLUSH 10 ML IV (20:17)
[2022-11-13] VITALS (56 sets, daily range): BP systolic 86–127; BP diastolic 58–89; PULSE 99–111; RESP 18–35; TEMP 35.2–36.9; O2SAT 89–98
[2022-11-13] MEDS: AMIODARONE 180 MG/100 ML PIGGYBACK 16.7 MG IV (01:33)
[2022-11-13 05:01] LABS: Add Manual Diff / Slide Review NO; Basophils Absolute Auto 0 /uL (0-100); Basophils Percent Auto 0.6 % (0-2); Eosinophils Absolute Auto 200 /uL (0-450); Eosinophils Percent Auto 2.3 % (2-4); Hematocrit 44.8 % (41-53); Hemoglobin 15.4 g/dL (13.5-17.5); Lymphocytes Absolute Auto 1300 /uL (1100-4500); Lymphocytes Percent Auto 17.4 % (25-40); Mean Corpuscular HGB Conc 34.3 % (30-36); Mean Corpuscular Hemoglobin 30.6 PG (26-34); Mean Corpuscular Volume 89.4 fL (80-100); Monocytes Absolute Auto 900 /uL (0-900); Monocytes Percent Auto 12.1 % (3-14); Neutrophils Absolute Auto 5100 /uL (1500-7000); Neutrophils Percent Auto 67.6 % (50-75); Platelet Count 187 X10^3/uL (150-400); Red Blood Cell Count 5.01 X10^6/uL (4.5-5.9); White Blood Cell Count 7.6 X10^3/uL (4.5-11.0)
[2022-11-13 05:12] LABS: BUN Creatinine Ratio 22.5 (6-22); Blood Urea Nitrogen 31 mg/dL (9-20); Calcium 9.1 mg/dL (8.4-10.2); Carbon Dioxide 28 mmol/L (22-32); Chloride 103 mmol/L (98-107); Estimated Glomerular Filt Rate 52 mL/min (>60); Glucose 98 mg/dL (80-110); HEMOLYSIS < 15 (0-50); Sodium 139 mmol/L (137-145)
[2022-11-13] MEDS: AMIODARONE 200 MG TABLET PO ×2 (08:39→17:01)
[2022-11-13] MEDS: APIXABAN 5 MG TABLET PO ×2 (08:39→20:36)
[2022-11-13] MEDS: SODIUM CHLORIDE 0.9% FLUSH 10 ML IV ×2 (08:41→20:36)
[2022-11-13] MEDS: METOPROLOL IR 50 MG TABLET PO ×3 (12:19→23:47)
--- NOTE | 2022-11-13 14:54 | P.PN_ITS ---
Subjective Subjective Date Patient Seen: 11/13/22 Time Patient Seen: 08:00 Interval history: Discussed with cardiology yesterday and they recommended continuing amiodarone for another day. This was done. He remains with no symptoms, but his heart rate has not improed. Discussed with cardiology that stress test shows no ischemia but shows findings consistent with prior infarct. Exam Vital Signs (past 8 hours): - 11/13/22 08:00 11/13/22 08:00 11/13/22 12:35 Temperature 97.1 F L Pulse Rate 106 H 109 H Respiratory Rate 22 19 Blood Pressure 113/78 127/89 Pulse Oximetry 97 98 Oxygen Delivery Method Room Air Oxygen Flow Rate 0 0 Oxygen Delivery Method Room Air Oxygen Flow Rate 0 Narrative Exam Narrative: GEN: no acute distress PULM: clear bilaterally CV: irregular, tachycardic EXT: warm and well perfused, no edema Objective Labs 11/13/22 04:25 11/13/22 04:25 Labs: Laboratory Results - last 24 hr 11/13/22 11/13/22 04:25 04:25 WBC 7.6 RBC 5.01 Hgb 15.4 Hct 44.8 MCV 89.4 MCH 30.6 MCHC 34.3 RDW 14.0 Plt Count 187 Neut % (Auto) 67.6 Lymph % (Auto) 17.4 L [place] % (Auto) 12.1 Eos % (Auto) 2.3 Baso % (Auto) 0.6 Neut # (Auto) 5100 Lymph # (Auto) 1300 [place] # (Auto) 900 Eos # (Auto) 200 Baso # (Auto) 0 Sodium 139 Potassium 4.0 Chloride 103 Carbon Dioxide 28 BUN 31 H Creatinine 1.38 H Estimated GFR 52 L BUN/Creatinine Ratio 22.5 H Glucose 98 Calcium 9.1 PFSH Medical History Agent orange exposure Coronary artery disease Obesity (BMI 30-39.9) Obstructive sleep apnea of adult Primary insomnia Prostate cancer Snoring Surgical History History of lumbar fusion Social History household members: spouse Smoking Status: Former smoker alcohol intake: former substance use type: does not use Assessment & Plan Assessment & Plan narrative: # new atrial flutter with likely tachycardia induced cardiomyopathy and CHF -telemetry -eliquis started -ECHO showed EF 25%, dilated RV, mild MR/TR -stress test with perfusion defects seen on prior stress images which are consistent with previous infarct, but no current ischemia -trialed oral metoprolol and IV dilt with minimal response from heart rate -keep on metoprolol for low EF -did get amio load for atrial flutter with minimal improvement of heart rate, amio was then extended for additional 24 hours with no improvement -discussed with cardiolgy at [facility] (Rol[facility] Chisholm) who recommend transfer for possible cardioversion # hx of CAD -changed asa to eliquis, continue plavix, lipitor, -trops neg x3 # hx of NORMA -CPAP at night # Hx of HTN -metoprolol, monitor DVT proph: Eliquis Dispo: Pending improvement in rate control and completion of stress prone images. Quality VTE Deep Vein Thrombosis/Pulmonary Embolism Present on Admission: No
[2022-11-13] MEDS: ATORVASTATIN 20 MG TABLET 40 MG PO (20:36)
[2022-11-13] MEDS: CLOPIDOGREL 75 MG TABLET PO (20:36)
[2022-11-14] VITALS (20 sets, daily range): BP systolic 109–112; BP diastolic 71–75; PULSE 103–106; RESP 19–30; TEMP 36.4–36.9; O2SAT 95–98
[2022-11-14] MEDS: METOPROLOL IR 50 MG TABLET PO (06:19)
[2022-11-14] MEDS: APIXABAN 5 MG TABLET PO (08:17)
[2022-11-14] MEDS: SODIUM CHLORIDE 0.9% FLUSH 10 ML IV (08:17)
[2022-11-14] MEDS: AMIODARONE 200 MG TABLET PO (08:17)
--- NOTE | 2022-11-14 08:29 | PC.NURSE ---
Assess-Patient is alert and oriented x 4. His vss and heart rate 105. He denies chest pain or palpitations. is visiting him. Tele Sinus Tach with BBB. Up in the chair for breakfast.
--- NOTE | 2022-11-14 09:38 | PM.DS.1 ---
History of Present Illness History of Present Illness Date Patient Seen: 11/14/22 Time Patient Seen: 09:38 Chief complaint: SOB, high pulse, sent by pcp Narrative: 77 y/o M was sent by PCP after presenting with increasing sob and weakness. Pt has been having GIVENS which has been worsening. Denied any fever or chest pain. In the ED he was found to be tachycardic and EKG showed aflutter which is new for him. His BNP also returned elevated. He denies any orthpnea or leg swellig. Case was discussed with business management analyst construction recruiter who recommended anticoagulation and echo and consideration for cardiac stress test. pt says he feels better since arrival. He did receive one dose of iv Lasix per cards recommendation. Discharge Providers Provider Date of admission: 11/11/22 12:07 Discharge Date: 11/14/22 Primary care physician: Leroy More MD Discharge provider: Jean Parsons DO Summary Hospital Course Discharge Diagnosis: # new atrial flutter with likely tachycardia induced cardiomyopathy and acute systolic heart failure # hx of CAD # hx of NORMA # Hx of HTN Hospital Course: This is a 77 year old male with PMH of CAD, NORMA, HTN who was sent to the ER for worsening shortness of breath and weakness. He was found to be in rapid atrial flutter and echocardiogram showed a new redecued EF of 25% with dilated RV and mild MR/TR. Cardiology recommended rate control and stress test. Stress testing showed a fixed defect with no acute ischemia. Rate control proved to be difficult. He was trialed on oral metoprolol, IV diltiazem was trialed with minimal effect. Digoxin was also attempted with no effect. He received amiodarone loading x2 IV in the ICU, also with minimal effect. Cardiology ultimately recommended transfer for NAYLA/cardioversion however no bed was able to be found. The patient remained symptomatically improved, and after discussion with cardiology, patient and spouse decision was made to discharge home with plan for urgent outpatient evaluation for NAYLA cardioversion as there was no possibility in the near future for transfer reasonably. His beta marian was increased to 200 mg total dose daily (100 mg BID on discharge), and was continued on oral amiodarone. His rate at the time of discharge was around 105 consistently. Recommend further addition of cliff-inhibition as an outpatient, but was unable to add due to low-normal BP while here for his acute systolic heart failure. Time Spent with Patient Time spent: Greater than 30 minutes Exam Vital Signs (past 8 hours): - 11/14/22 02:00 11/14/22 02:30 11/14/22 03:00 Temperature Pulse Rate 104 H 104 H 105 H Respiratory Rate 24 22 22 Blood Pressure Pulse Oximetry 95 96 95 11/14/22 03:30 11/14/22 04:00 11/14/22 04:15 Temperature Pulse Rate 103 H 105 H Respiratory Rate 23 23 Blood Pressure 109/75 Pulse Oximetry 97 96 11/14/22 04:15 11/14/22 04:30 11/14/22 05:00 Temperature 98.4 F Pulse Rate 104 H 106 H 104 H Respiratory Rate 25 H 19 23 Blood Pressure Pulse Oximetry 97 97 96 11/14/22 05:30 11/14/22 06:00 11/14/22 06:30 Temperature Pulse Rate 105 H 106 H 105 H Respiratory Rate 23 22 25 H Blood Pressure Pulse Oximetry 96 96 97 11/14/22 07:00 11/14/22 07:30 11/14/22 08:00 Temperature Pulse Rate 105 H 106 H 105 H Respiratory Rate 24 22 25 H Blood Pressure Pulse Oximetry 98 96 98 11/14/22 08:07 11/14/22 08:07 11/14/22 08:30 Temperature Pulse Rate 105 H 106 H Respiratory Rate 26 H 30 H Blood Pressure 112/71 Pulse Oximetry 98 11/14/22 08:00 Temperature 97.6 F Pulse Rate Respiratory Rate Blood Pressure Pulse Oximetry Oxygen Delivery Method Room Air Oxygen Flow Rate 0 Narrative Exam Narrative: GEN: no acute distress PULM: clear bilaterally CV: irregular, tachycardic EXT: warm and well perfused, no edema Objective Labs 11/13/22 04:25 11/13/22 04:25 PFSH Medical History Agent orange exposure Coronary artery disease Obesity (BMI 30-39.9) Obstructive sleep apnea of adult Primary insomnia Prostate cancer Snoring Surgical History History of lumbar fusion Social History household members: spouse Smoking Status: Former smoker alcohol intake: former substance use type: does not use Discharge Plan Discharge Plan Patient Disposition: Home Provider Discharge Comment: You were admitted to the hospital for atrial flutter, an arrythmia with a fast heart rate. This has improved a little, but your heart is not pumping well (heart failure) due to the fast heart rate. Given no symptoms currently, you can follow up in the clinic for a NAYLA/cardioversion. Discharge orders & Medications Prescriptions: New amiodarone 200 mg Tablet 200 mg PO BIDWM 30 Days Qty: 30 0RF Eliquis 5 mg Tablet 5 mg PO BID 30 Days Qty: 60 0RF metoprolol succinate [Toprol XL] 100 mg tablet extended release 24 hr 100 mg PO BID 30 Days Qty: 60 0RF Continued atorvastatin 40 mg tablet 40 mg PO DAILY clopidogrel 75 mg tablet 75 mg PO DAILY (DME) [employer] CPAP Qty: 1 Dose Instruction: As directed Patient Comments: Pressure: 5-14 cmH2O DME: [facility] ASMITA: 03/14/17 Rx Instructions: As directed Discontinued atenolol 25 mg tablet 25 mg PO DAILY Follow up/Referrals: Leroy More MD [Primary Care Provider] - Diet/Activity/Treatments Diet: Diet as Tolerated and Low-sodium Activity: As tolerated Visit Report/Discharge Packet Instructions: Atrial Flutter, DI for Atrial Flutter, Metoprolol, Amiodarone, Apixaban Stand Alone Forms: Patient Portal/API, Stroke Signs & Symptoms Discharge Data Primary Care Provider: Leroy More V Discharges patient from system. Discharge Date/Time: 11/14/22 10:39 Quality VTE Deep Vein Thrombosis/Pulmonary Embolism Present on Admission: No MIPS - DC The patient has current or prior documentation of left ventricular ejection fraction (LVEF) less than or equal to 40%, or moderate or severely depressed left ventricular systolic function.: Yes A. The patient was prescribed or already taking an Angiotensin-Converting Enzyme (CLIFF) Inhibitor, or Angiotensin Receptor Marian (ARB).: No B. The patient was prescribed or already taking a beta-marian. [If Yes to Both A & B, STOP here]: Yes Patient not prescribed/taking CLIFF or ARB for medical/patient reason(s) including (ex: allergy, intolerance, contraindication).: yes, as discussed above.
--- NOTE | 2022-11-14 13:10 | CM.DPC ---
DCP Discharge Home Per MD, pt continues to not have controlled heart rate but consulted again with Cardiology and recommendation is for pt to discharge home with outpt f/u with Cardiology. Per RN, discharge instructions provided and no concerns noted and taken down to spouse POV. Plan: Patient discharged home via spouse POV and close outpt f/u with Cardiology and NEEDLE MAKER/novelty candy maker faxed clinicals to [facility] Cardiology office to schedule pt for appointment this week. CLINTON Smtih
== END 2022-11-14 10:39 | disposition home or self-care (01) | DRG 291 ==
LOC: ED 18:35 → AC 22:00 → ICU 11-11 13:34 → AC 11-13 08:24 → ICU 11-13 08:24
PROVIDERS: Emergency Medicine; Internal Medicine; Admitting Provider Hospitalist; Emergency Provider Student in an Organized Health Care Education/Training Program; PCP Internal Medicine; Referring Provider Emergency Medicine; Visit Provider Hospitalist
DX: I11.0 Hypertensive heart disease with heart failure (principal); I50.21 Acute systolic (congestive) heart failure; I48.92 Unspecified atrial flutter; I25.10 Atherosclerotic heart disease of native coronary artery without angina pectoris; G47.33 Obstructive sleep apnea (adult) (pediatric); I42.8 Other cardiomyopathies; Z79.02 Long term (current) use of antithrombotics/antiplatelets; Z87.891 Personal history of nicotine dependence
CPT/HCPCS: 36415; 71045; 78452; 80048; 80053; 82550; 83690; 83735; 83880; 84443; 84484; 85025; 85610; 85730; 87797; 93005; 93017; 96372; 96374; 99284; 99285; G0378; A9502; C8929; J0282; J1160; J1650; J1940; J2785; Q9957

== ENCOUNTER → 2022-12-08 09:43 | Outpatient (CLI) | payer MEDICARE, OTHER, SELFPAY ==
[2022-11-10 12:33] VITALS: BMI 35.7
== END ==
PROVIDERS: PCP Registered Nurse; Referring Provider Nurse Practitioner Acute Care; Visit Provider Nurse Practitioner Acute Care
DX: Z79.899 Other long term (current) drug therapy (principal); Z87.891 Personal history of nicotine dependence; J98.8 Other specified respiratory disorders
CPT/HCPCS: 94060; 94726; 94729

== ENCOUNTER 2022-12-14 14:15 | Emergency (ER) | payer MEDICARE, OTHER, SELFPAY ==
[2022-11-10 12:33] VITALS: BMI 35.7
[2022-12-14] VITALS (24 sets, daily range): BP systolic 93–107; BP diastolic 63–82; PULSE 99–101; RESP 20–30; TEMP 36.4; O2SAT 97–100; BMI 34.8
--- NOTE | 2022-12-14 14:26 | DI.RAD.S_ITS ---
PROCEDURE: XR CHEST 1V INDICATIONS: Shortness of breath TECHNIQUE: One view of the chest was acquired. COMPARISON: [facility], CR, XR CHEST 1V, 11/09/2022, 12:50. FINDINGS: Surgical changes and devices: None. Lungs and pleura: Mildly increased pulmonary vascularity. No pleural effusions or pneumothorax. Mediastinum: Mediastinal contours appear normal. Heart is moderately enlarged. Bones and chest wall: No suspicious bony lesions. Overlying soft tissues appear unremarkable. IMPRESSION: 1. Moderate cardiomegaly and mildly increased pulmonary vascularity suggesting mild CHF. Dictated by: Yuly Vicente M.D. on 12/14/2022 at 16:37 Approved by: Yuly Vicente M.D. on 12/14/2022 at 16:38
[2022-12-14 15:10] LABS: Add Manual Diff / Slide Review NO; Basophils Absolute Auto 0 /uL (0-100); Basophils Percent Auto 0.4 % (0-2); Eosinophils Absolute Auto 100 /uL (0-450); Eosinophils Percent Auto 1.9 % (2-4); Hematocrit 44.9 % (41-53); Hemoglobin 15.1 g/dL (13.5-17.5); Lymphocytes Absolute Auto 900 /uL (1100-4500); Lymphocytes Percent Auto 12.9 % (25-40); Mean Corpuscular HGB Conc 33.7 % (30-36); Mean Corpuscular Hemoglobin 30.8 PG (26-34); Mean Corpuscular Volume 91.5 fL (80-100); Monocytes Absolute Auto 800 /uL (0-900); Monocytes Percent Auto 11.3 % (3-14); Neutrophils Absolute Auto 5000 /uL (1500-7000); Neutrophils Percent Auto 73.5 % (50-75); Platelet Count 192 X10^3/uL (150-400); Red Blood Cell Count 4.91 X10^6/uL (4.5-5.9); White Blood Cell Count 6.8 X10^3/uL (4.5-11.0)
[2022-12-14 15:15] LABS: INR 2.2 (0.9-1.3); Prothrombin Time 25.7 SECONDS (10.1-12.7)
[2022-12-14 15:19] LABS: Influenza A - CEPHEID Flu A NEGATIVE (NEGATIVE); Influenza B - CEPHEID Flu B NEGATIVE (NEGATIVE); Respiratory Syncytial Virus Negative (Negative)
[2022-12-14 15:28] LABS: COVID-19 CEPHEID 4-PLEX PCR Negative (Negative)
[2022-12-14 15:28] LABS: Alanine Aminotransferase 31 IU/L (<50); Albumin 4.2 g/dL (3.5-5.0); Albumin Globulin Ratio 1.4 (1.0-2.8); Alkaline Phosphatase 57 U/L (38-126); Aspartate Aminotransferase 28 IU/L (17-59); BUN Creatinine Ratio 17.7 (6-22); Bilirubin Total 2.5 mg/dL (0.2-1.3); Blood Urea Nitrogen 29 mg/dL (9-20); Calcium 9.1 mg/dL (8.4-10.2); Carbon Dioxide 22 mmol/L (22-32); Chloride 106 mmol/L (98-107); Estimated Glomerular Filt Rate 42 mL/min (>60); Globulin 2.9 g/dL (1.7-4.1); Glucose 95 mg/dL (80-110); HEMOLYSIS 45 (0-50); Lipase 70 U/L (23-300); Potassium 5.3 mmol/L (3.4-5.1); Sodium 137 mmol/L (137-145); Total Protein 7.1 g/dL (6.3-8.2)
[2022-12-14 15:29] LABS: Lactate (Lactic Acid) 1.6 mmol/L (0.7-2.1)
[2022-12-14 15:40] LABS: NT-proBNP (BNP-Adult 18+) 6970 pg/mL (<450); Troponin I < 0.012 ng/mL (0.01-0.034)
--- NOTE | 2022-12-14 17:00 | ED_ITS ---
HPI - SOB/Dyspnea <Tk Mcclellan MD - Last Filed: 12/29/22 09:03> General Chief Complaint: Shortness of Breath/Dyspnea Stated Complaint: SOB T-2 Time Seen by Provider: 12/14/22 16:44 Source: patient Mode of arrival: Wheelchair Limitations: no limitations History of Present Illness HPI Narrative: Patient here with complains of shortness of breath since he got discharge November 14, 2022 from here. Please see notes below. Patient states is scheduled for outpatient echocardiogram and then cardioversion next week at [facility]. Patient denies any chest pain. Denies any weight gain or peripheral edema. He states he gets out of breath when walking. Hospital Course: This is a 77 year old male with PMH of CAD, NORMA, HTN who was sent to the ER for worsening shortness of breath and weakness. He was found to be in rapid atrial flutter and echocardiogram showed a new redecued EF of 25% with dilated RV and mild MR/TR. Cardiology recommended rate control and stress test. Stress testing showed a fixed defect with no acute ischemia. Rate control proved to be difficult. He was trialed on oral metoprolol, IV diltiazem was trialed with minimal effect. Digoxin was also attempted with no effect. He received amiodarone loading x2 IV in the ICU, also with minimal effect. Cardiology ultimately recommended transfer for NAYLA/cardioversion however no bed was able to be found. The patient remained symptomatically improved, and after discussion with cardiology, patient and spouse decision was made to discharge home with plan for urgent outpatient evaluation for NAYLA cardioversion as there was no possibility in the near future for transfer reasonably. His beta lazaro was increased to 200 mg total dose daily (100 mg BID on discharge), and was continued on oral amiodarone. His rate at the time of discharge was around 105 consistently. Recommend further addition of salena-inhibition as an outpatient, but was unable to add due to low-normal BP while here for his acute systolic heart failure. Related Data Home Medications Medication Instructions Recorded Confirmed [employer] DreamStation CPAP #1 ea 12/15/21 11/10/22 atorvastatin 40 mg tablet 40 mg PO DAILY 11/09/22 11/09/22 clopidogrel 75 mg tablet 75 mg PO DAILY 11/09/22 11/09/22 Allergies Allergy/AdvReac Type Severity Reaction Status Date / Time No Known Drug Allergies Allergy Verified 11/09/22 12:19 Review of Systems <Tk Mcclellan MD - Last Filed: 12/29/22 09:03> Review of Systems Narrative: GENERAL: negative chills, fatigue, malaise, fever, sweats. HEENT: negative sinus pain, ear pain, sore throat RESPIRATORY: Positive dyspnea, negative cough CARDIOVASCULAR: negative chest pain, palpitations GASTROINTESTINAL: negative nausea, vomiting, abdominal pain : negative dysuria, frequency, hematuria MUSCULOSKELETAL: negative muscle or bony pain SKIN: negative rash, skin lesions NEUROLOGIC: negative weakness, numbness ROS Unobtainable: All systems reviewed & are unremarkable except as noted in HPI and below Patient History <Tk Mcclellan MD - Last Filed: 12/29/22 09:03> Medical History Agent orange exposure Coronary artery disease Obesity (BMI 30-39.9) Obstructive sleep apnea of adult Primary insomnia Prostate cancer Snoring Surgical History History of lumbar fusion Social History household members: spouse Smoking Status: Former smoker alcohol intake: former substance use type: does not use Smoking Status: Former smoker alcohol intake frequency: holidays/special occasions only Substance Use Type: does not use Exam <Tk Mcclellan MD - Last Filed: 12/29/22 09:03> Narrative Exam Narrative: GENERAL: in no distress, not toxic not dyspneic HEAD: Normocephalic. EYES: Pupils equal round ENT: Mucous membranes moist. NECK: Trachea midline. CARDIOVASCULAR: Tachycardia with Regular rate and rhythm RESPIRATORY: Clear to auscultation. Breath sounds equal bilaterally. No wheezes, rales, or rhonchi. GASTROINTESTINAL: Abdomen soft, non-tender EXTREMITIES: No gross deformities. BACK: No flank tenderness. NEURO: AOx4. SKIN: Warm and dry PSYCH: Not anxious, is cooperative Initial Vital Signs Initial Vital Signs: Vital Signs Temperature 97.5 F L 12/14/22 14:19 Pulse Rate 100 H 12/14/22 14:19 Respiratory Rate 22 12/14/22 14:19 Blood Pressure 97/63 12/14/22 14:19 Pulse Oximetry 99 12/14/22 14:19 Oxygen Delivery Method Room Air 12/14/22 14:19 <Keara Hawkins DO - Last Filed: 12/15/22 04:08> Initial Vital Signs Initial Vital Signs: Vital Signs Temperature 97.5 F L 12/14/22 14:19 Pulse Rate 100 H 12/14/22 14:19 Respiratory Rate 22 12/14/22 14:19 Blood Pressure 97/63 12/14/22 14:19 Pulse Oximetry 99 12/14/22 14:19 Oxygen Delivery Method Room Air 12/14/22 14:19 Course <Tk Mcclellan MD - Last Filed: 12/29/22 09:03> Orders Ordered: Discontinued Medications Amiodarone HCl (Amiodarone 200 Mg Tablet) 400 mg PO NOW ONE Stop: 12/14/22 17:26 Last Admin: 12/14/22 17:48 Dose: 400 mg Documented By: CHARISMA Vital Signs Vital signs: Vital Signs - 8 hr 12/14/22 14:19 12/14/22 15:03 12/14/22 15:04 Temperature 97.5 F L Pulse Rate 100 H Respiratory Rate 22 Blood Pressure 97/63 102/69 105/67 Pulse Oximetry 99 Oxygen Delivery Method Room Air 12/14/22 15:04 12/14/22 15:15 12/14/22 15:15 Temperature Pulse Rate 100 H 100 H Respiratory Rate 20 22 Blood Pressure 100/66 Pulse Oximetry 100 100 Oxygen Delivery Method 12/14/22 15:30 12/14/22 15:30 12/14/22 15:45 Temperature Pulse Rate 101 H 101 H Respiratory Rate 23 24 Blood Pressure 99/71 Pulse Oximetry 98 98 Oxygen Delivery Method 12/14/22 15:45 12/14/22 16:00 12/14/22 16:00 Temperature Pulse Rate 101 H Respiratory Rate 25 H Blood Pressure 99/71 93/66 Pulse Oximetry 97 Oxygen Delivery Method 12/14/22 16:15 12/14/22 16:15 12/14/22 16:30 Temperature Pulse Rate 101 H Respiratory Rate 24 Blood Pressure 96/70 98/78 Pulse Oximetry 98 Oxygen Delivery Method 12/14/22 16:30 12/14/22 16:45 12/14/22 16:45 Temperature Pulse Rate 101 H 101 H Respiratory Rate 29 H 20 Blood Pressure 96/77 Pulse Oximetry 99 99 Oxygen Delivery Method 12/14/22 17:00 12/14/22 17:00 12/14/22 17:15 Temperature Pulse Rate 100 H Respiratory Rate 22 Blood Pressure 104/78 100/72 Pulse Oximetry 98 Oxygen Delivery Method 12/14/22 17:15 12/14/22 17:30 12/14/22 17:30 Temperature Pulse Rate 100 H 100 H Respiratory Rate 27 H 24 Blood Pressure 102/75 Pulse Oximetry 99 98 Oxygen Delivery Method 12/14/22 17:44 12/14/22 17:45 12/14/22 17:45 Temperature Pulse Rate 101 H 101 H Respiratory Rate 22 24 Blood Pressure 100/73 Pulse Oximetry 98 98 Oxygen Delivery Method 12/14/22 18:00 12/14/22 18:00 12/14/22 18:15 Temperature Pulse Rate 100 H 100 H Respiratory Rate 22 24 Blood Pressure 98/69 Pulse Oximetry 99 99 Oxygen Delivery Method 12/14/22 18:15 12/14/22 18:30 12/14/22 18:30 Temperature Pulse Rate 101 H Respiratory Rate 30 H Blood Pressure 100/65 105/67 Pulse Oximetry 98 Oxygen Delivery Method 12/14/22 18:45 12/14/22 18:45 12/14/22 19:00 Temperature Pulse Rate 100 H Respiratory Rate 25 H Blood Pressure 107/69 107/73 Pulse Oximetry 98 Oxygen Delivery Method 12/14/22 19:00 12/14/22 19:16 12/14/22 19:16 Temperature Pulse Rate 100 H 100 H Respiratory Rate 24 22 Blood Pressure 104/67 Pulse Oximetry 98 99 Oxygen Delivery Method 12/14/22 19:30 12/14/22 19:30 Temperature Pulse Rate 99 H Respiratory Rate 24 Blood Pressure 103/77 Pulse Oximetry 98 Oxygen Delivery Method <Keara Hawkins, - Last Filed: 12/15/22 04:08> Orders Ordered: Discontinued Medications Amiodarone HCl (Amiodarone 200 Mg Tablet) 400 mg PO NOW ONE Stop: 12/14/22 17:26 Last Admin: 12/14/22 17:48 Dose: 400 mg Documented By: CHARISMA Vital Signs Vital signs: Vital Signs - 8 hr 12/14/22 14:19 12/14/22 15:03 12/14/22 15:04 Temperature 97.5 F L Pulse Rate 100 H Respiratory Rate 22 Blood Pressure 97/63 102/69 105/67 Pulse Oximetry 99 Oxygen Delivery Method Room Air 12/14/22 15:04 12/14/22 15:15 12/14/22 15:15 Temperature Pulse Rate 100 H 100 H Respiratory Rate 20 22 Blood Pressure 100/66 Pulse Oximetry 100 100 Oxygen Delivery Method 12/14/22 15:30 12/14/22 15:30 12/14/22 15:45 Temperature Pulse Rate 101 H 101 H Respiratory Rate 23 24 Blood Pressure 99/71 Pulse Oximetry 98 98 Oxygen Delivery Method 12/14/22 15:45 12/14/22 16:00 12/14/22 16:00 Temperature Pulse Rate 101 H Respiratory Rate 25 H Blood Pressure 99/71 93/66 Pulse Oximetry 97 Oxygen Delivery Method 12/14/22 16:15 12/14/22 16:15 12/14/22 16:30 Temperature Pulse Rate 101 H Respiratory Rate 24 Blood Pressure 96/70 98/78 Pulse Oximetry 98 Oxygen Delivery Method 12/14/22 16:30 12/14/22 16:45 12/14/22 16:45 Temperature Pulse Rate 101 H 101 H Respiratory Rate 29 H 20 Blood Pressure 96/77 Pulse Oximetry 99 99 Oxygen Delivery Method 12/14/22 17:00 12/14/22 17:00 12/14/22 17:15 Temperature Pulse Rate 100 H Respiratory Rate 22 Blood Pressure 104/78 100/72 Pulse Oximetry 98 Oxygen Delivery Method 12/14/22 17:15 12/14/22 17:30 12/14/22 17:30 Temperature Pulse Rate 100 H 100 H Respiratory Rate 27 H 24 Blood Pressure 102/75 Pulse Oximetry 99 98 Oxygen Delivery Method 12/14/22 17:44 12/14/22 17:45 12/14/22 17:45 Temperature Pulse Rate 101 H 101 H Respiratory Rate 22 24 Blood Pressure 100/73 Pulse Oximetry 98 98 Oxygen Delivery Method 12/14/22 18:00 12/14/22 18:00 12/14/22 18:15 Temperature Pulse Rate 100 H 100 H Respiratory Rate 22 24 Blood Pressure 98/69 Pulse Oximetry 99 99 Oxygen Delivery Method 12/14/22 18:15 12/14/22 18:30 12/14/22 18:30 Temperature Pulse Rate 101 H Respiratory Rate 30 H Blood Pressure 100/65 105/67 Pulse Oximetry 98 Oxygen Delivery Method 12/14/22 18:45 12/14/22 18:45 12/14/22 19:00 Temperature Pulse Rate 100 H Respiratory Rate 25 H Blood Pressure 107/69 107/73 Pulse Oximetry 98 Oxygen Delivery Method 12/14/22 19:00 12/14/22 19:16 12/14/22 19:16 Temperature Pulse Rate 100 H 100 H Respiratory Rate 24 22 Blood Pressure 104/67 Pulse Oximetry 98 99 Oxygen Delivery Method 12/14/22 19:30 12/14/22 19:30 Temperature Pulse Rate 99 H Respiratory Rate 24 Blood Pressure 103/77 Pulse Oximetry 98 Oxygen Delivery Method MDM - SOB/Dyspnea <Tk Mcclellan MD - Last Filed: 12/29/22 09:03> Lab Data 12/14/22 14:52 12/14/22 14:52 Labs: Lab Results 12/14/22 12/14/22 12/14/22 Range/Units 14:27 14:52 15:01 WBC 6.8 (4.5-11.0) X10^3/uL RBC 4.91 (4.5-5.9) X10^6/uL Hgb 15.1 (13.5-17.5) g/dL Hct 44.9 (41-53) % MCV 91.5 (80-100) fL MCH 30.8 (26-34) PG MCHC 33.7 (30-36) % RDW 15.0 H (11.6-14.8) % Plt Count 192 (150-400) X10^3/uL Neut % (Auto) 73.5 (50-75) % Lymph % (Auto) 12.9 L (25-40) % Benton % (Auto) 11.3 (3-14) % Eos % (Auto) 1.9 L (2-4) % Baso % (Auto) 0.4 (0-2) % Neut # (Auto) 5000 (2443-4371) /uL Lymph # (Auto) 900 L (0691-2331) /uL Benton # (Auto) 800 (0-900) /uL Eos # (Auto) 100 (0-450) /uL Baso # (Auto) 0 (0-100) /uL PT 25.7 H (10.1-12.7) SECONDS INR 2.2 H (0.9-1.3) Sodium 137 (137-145) mmol/L Potassium 5.3 H (3.4-5.1) mmol/L Chloride 106 (98-107) mmol/L Carbon Dioxide 22 (22-32) mmol/L BUN 29 H (9-20) mg/dL Creatinine 1.64 H (0.66-1.25) mg/dL Estimated GFR 42 L (>60) mL/min BUN/Creatinine Ratio 17.7 (6-22) Glucose 95 (80-110) mg/dL Lactate 1.6 (0.7-2.1) mmol/L Calcium 9.1 (8.4-10.2) mg/dL Magnesium 2.2 (1.6-2.3) mg/dL Total Bilirubin 2.5 H (0.2-1.3) mg/dL AST 28 (17-59) IU/L ALT 31 (<50) IU/L Alkaline Phosphatase 57 (38-126) U/L Troponin I < 0.012 (0.01-0.034) ng/mL NT-Pro-B Natriuret Pep 6970 H (<450) pg/mL Total Protein 7.1 (6.3-8.2) g/dL Albumin 4.2 (3.5-5.0) g/dL Globulin 2.9 (1.7-4.1) g/dL Albumin/Globulin Ratio 1.4 (1.0-2.8) Lipase 70 (23-300) U/L SARS-CoV-2 (PCR) Negative (Negative) Influenza A (RT-PCR) Flu a negative (NEGATIVE) Influenza B (RT-PCR) Flu b negative (NEGATIVE) RSV (PCR) Negative (Negative) Imaging Data Chest x-ray: Radiologist's Impression: [address] [address] XRay Report Signed Patient: Jamie Brambila MR#: [id number] : 1945 Acct:[id number] Age/Sex: 77 / M Date of Service: 12/14/22 Loc: ED Accession Number: [id number] ?? Procedure: XR chest 1V Ordering Provider: Tk Mcclellan MD PROCEDURE:? XR CHEST 1V ? INDICATIONS:? Shortness of breath ? TECHNIQUE:? One view of the chest was acquired.? ? COMPARISON:? [facility], CR, XR CHEST 1V, 11/09/2022, 12:50. ? FINDINGS:? ? Surgical changes and devices:? None.? ? Lungs and pleura:? Mildly increased pulmonary vascularity.? No pleural effusions or pneumothorax.? ? Mediastinum:? Mediastinal contours appear normal.? Heart is moderately enlarged.? ? Bones and chest wall:? No suspicious bony lesions.? Overlying soft tissues appear unremarkable.? ? ? IMPRESSION:? ? 1. Moderate cardiomegaly and mildly increased pulmonary vascularity suggesting mild CHF.? Dictated by: Yuly Vicente M.D. on 12/14/2022 at 16:37 ? ? Approved by: Yuly Vicente M.D. on 12/14/2022 at 16:38 ? [facility] Narrative Medical decision making narrative: Patient here with complains of shortness of breath since he got discharge November 14, 2022 from here. Please see notes below. Patient states is scheduled for outpatient echocardiogram and then cardioversion next week at [facility]. Patient denies any chest pain. Denies any weight gain or peripheral edema. He states he gets out of breath when walking. After history and exam CBC CMP troponin BNP magnesium EKG chest x-ray MDM CC: Dyspnea Complicating co-morbidities: Atrial flutter CHF Data collected from: Patient and Medical records reviewed: Discharge summary from this hospital last month Differential considered: Includes but not limited to atrial flutter atrial fibrillation CHF Exam documented above, pertinent findings include: Tachycardia Lab Test results independently reviewed as above. Pertinent findings: WBC 6.8 hemoglobin 15.1 INR 2.2 sodium 137 potassium 5.3 BUN 29 creatinine 1.64 GFR 42 troponin less than 0.012 BNP 6970 Independently reviewed EKG atrial flutter rate 101 Imaging studies independently reviewed: Chest x-ray moderate cardiomegaly Consultations: 5:[address] Stephen, [facility] felt hat flanging operator, patient likely can go home if we can get rate control. He reviewed patient's chart. He did get successful cardioversion at [facility] outpatient November 15. He was seen in the office by nurse practitioner November 29. He is on amiodarone 200 mg daily. He would like to give patient 400 mg by mouth now. If this improves heart rate blood pressure she go up. Patient then can be discharged home 600 mg for the next 3 days and then convert to 2 mg twice a day until his day of cardioversion. He would not cardiovert patient at this time. He does not feel patient needs diuresis. Treatments: Amiodarone Re-evaluations: 5:26 p.m.. Reviewed my discussion with Cardiology with patient and . They agree with treatment plan. Discussion: Diagnosis: Atrial flutter 6:00 p.m.. Vy: Sign out to Dr Hawkins, reviewed treatment plan as I discussed with Dr. Stephen. Possibly discharge home pending heart rate improvement in blood pressure improvement <Keara Hawkins, DO - Last Filed: 12/15/22 04:08> Lab Data Labs: Lab Results 12/14/22 12/14/22 12/14/22 Range/Units 14:27 14:52 15:01 WBC 6.8 (4.5-11.0) X10^3/uL RBC 4.91 (4.5-5.9) X10^6/uL Hgb 15.1 (13.5-17.5) g/dL Hct 44.9 (41-53) % MCV 91.5 (80-100) fL MCH 30.8 (26-34) PG MCHC 33.7 (30-36) % RDW 15.0 H (11.6-14.8) % Plt Count 192 (150-400) X10^3/uL Neut % (Auto) 73.5 (50-75) % Lymph % (Auto) 12.9 L (25-40) % Benton % (Auto) 11.3 (3-14) % Eos % (Auto) 1.9 L (2-4) % Baso % (Auto) 0.4 (0-2) % Neut # (Auto) 5000 (4833-6332) /uL Lymph # (Auto) 900 L (9792-8014) /uL Benton # (Auto) 800 (0-900) /uL Eos # (Auto) 100 (0-450) /uL Baso # (Auto) 0 (0-100) /uL PT 25.7 H (10.1-12.7) SECONDS INR 2.2 H (0.9-1.3) Sodium 137 (137-145) mmol/L Potassium 5.3 H (3.4-5.1) mmol/L Chloride 106 (98-107) mmol/L Carbon Dioxide 22 (22-32) mmol/L BUN 29 H (9-20) mg/dL Creatinine 1.64 H (0.66-1.25) mg/dL Estimated GFR 42 L (>60) mL/min BUN/Creatinine Ratio 17.7 (6-22) Glucose 95 (80-110) mg/dL Lactate 1.6 (0.7-2.1) mmol/L Calcium 9.1 (8.4-10.2) mg/dL Magnesium 2.2 (1.6-2.3) mg/dL Total Bilirubin 2.5 H (0.2-1.3) mg/dL AST 28 (17-59) IU/L ALT 31 (<50) IU/L Alkaline Phosphatase 57 (38-126) U/L Troponin I < 0.012 (0.01-0.034) ng/mL NT-Pro-B Natriuret Pep 6970 H (<450) pg/mL Total Protein 7.1 (6.3-8.2) g/dL Albumin 4.2 (3.5-5.0) g/dL Globulin 2.9 (1.7-4.1) g/dL Albumin/Globulin Ratio 1.4 (1.0-2.8) Lipase 70 (23-300) U/L SARS-CoV-2 (PCR) Negative (Negative) Influenza A (RT-PCR) Flu a negative (NEGATIVE) Influenza B (RT-PCR) Flu b negative (NEGATIVE) RSV (PCR) Negative (Negative) [facility] Narrative Medical decision making narrative: Patient here with complains of shortness of breath since he got discharge November 14, 2022 from here. Please see notes below. Patient states is scheduled for outpatient echocardiogram and then cardioversion next week at [facility]. Patient denies any chest pain. Denies any weight gain or peripheral edema. He states he gets out of breath when walking. After history and exam CBC CMP troponin BNP magnesium EKG chest x-ray MDM CC: Dyspnea Complicating co-morbidities: Atrial flutter CHF Data collected from: Patient and Medical records reviewed: Discharge summary from this hospital last month Differential considered: Includes but not limited to atrial flutter atrial fibrillation CHF Exam documented above, pertinent findings include: Tachycardia Lab Test results independently reviewed as above. Pertinent findings: WBC 6.8 hemoglobin 15.1 INR 2.2 sodium 137 potassium 5.3 BUN 29 creatinine 1.64 GFR 42 troponin less than 0.012 BNP 6970 Independently reviewed EKG atrial flutter rate 101 Imaging studies independently reviewed: Chest x-ray moderate cardiomegaly Consultations: 5:[address] Stephen, [facility] felt hat flanging operator, patient likely can go home if we can get rate control. He reviewed patient's chart. He did get successful cardioversion at [facility] outpatient November 15. He was seen in the office by nurse practitioner November 29. He is on amiodarone 200 mg daily. He would like to give patient 400 mg by mouth now. If this improves heart rate blood pressure she go up. Patient then can be discharged home 600 mg for the next 3 days and then convert to 2 mg twice a day until his day of cardioversion. He would not cardiovert patient at this time. He does not feel patient needs diuresis. Treatments: Amiodarone Re-evaluations: 5:26 p.m.. Reviewed my discussion with Cardiology with patient and . They agree with treatment plan. Discussion: Diagnosis: Atrial flutter 6:00 p.m.. Vy: Sign out to Dr Hawkins, reviewed treatment plan as I discussed with Dr. Stephen. Possibly discharge home pending heart rate improvement in blood pressure improvement Dr. Hawkins-patient seen evaluated by myself. He reports he has been short of breath since before he was admitted to the hospital. Cardiology was consulted in regards to mild hypotension and tachycardia. He was given extra dose of amiodarone. It has not really change his heart rate over numerous hours. His blood pressure has actually gone up to 107/69. He reports that he would like to go home. BNP is elevated but cardiology reports not to diurese him he is scheduled for cardioversion next week. Patient denies any orthopnea or peripheral edema. He overall appears stable. Discharge Plan Departure Patient Disposition: Home Clinical Impression: Atrial flutter Instructions: DI for Atrial Flutter Activity Restrictions/Additional Instructions: *You have been diagnosed with atrial flutter *What to do: At this time please follow-up with Cardiology as scheduled next week. *Continue to take medications as directed Amiodarone 600 mg once daily for 3 days then resume 200 mg until appointment with Cardiology *Follow up with your primary care provider in 2-3 days or call [phone] *Return to ER if you should have increasing chest pain dizziness shortness of breath fever or any new, worsening or concerning symptoms Prescriptions: No Action atorvastatin 40 mg tablet 40 mg PO DAILY clopidogrel 75 mg tablet 75 mg PO DAILY (DME) Respironics DreamStation CPAP Qty: 1 Dose Instruction: As directed Patient Comments: Pressure: 5-14 cmH2O DME: [facility] ASMITA: 03/14/17 Rx Instructions: As directed Referrals: Tonja Chaidez ARNP [Primary Care Provider] - Kevin Stephen MD [Physician] - Stand Alone Forms: Patient Portal/API
[2022-12-14] MEDS: AMIODARONE 200 MG TABLET 400 MG PO (17:48)
[2022-12-14 17:49] LABS: Magnesium 2.2 mg/dL (1.6-2.3)
== END 2022-12-14 20:29 | disposition home or self-care (01) ==
PROVIDERS: Emergency Medicine; Emergency Provider Emergency Medicine; PCP Registered Nurse
DX: I48.92 Unspecified atrial flutter (principal); R06.02 Shortness of breath; Z20.822 Contact with and (suspected) exposure to COVID-19
CPT/HCPCS: 0241U; 36415; 71045; 80053; 83605; 83690; 83735; 83880; 84484; 85025; 85610; 93005; 99284

== ENCOUNTER → 2023-01-22 12:19 | Outpatient (CLI) | payer MEDICARE, OTHER, SELFPAY ==
[2022-11-10 12:33] VITALS: BMI 35.7
--- NOTE | 2023-01-22 | DI.ECHO.S_ITS ---
[place] [facility]---------+ [facility] +---------+ : : [address] : : : : [id number] : : : : Phone: [phone] Echocardiogram Report + + :Name: YELENA HEREDIA Study Date: 01/22/2023 Height: 73 in : :[facility] ReadingLocation: Weight: 265 lb: : Gender: Male BSA: 2.4 m2 : :: 1945 Age: 77 yrs BP: 99/80 mmHg: :Reason For Study: Atrial Flutter : :Ordering Physician: DARIUS, : :BANDAR Performed By: Steffanie Sullivan : :Referring: BANDAR MCCOY : + + Interpretation Summary Slow atrial flutter versus sinus tachycardia with heart rate 104 to 111 bpm. Underlying bundle branch block. Occasional PVCs. The left ventricle is moderately dilated. The ejection fraction is estimated to be 15-20%. Previous LVEF,25 +/- 5%. Left ventricular systolic function is severely reduced. There is severe global hypokinesis of the left ventricle. The right ventricle is moderately dilated. Right ventricular systolic function is moderately reduced. Right ventricular systolic function has decreased since previous exam. There is moderate mitral regurgitation. Compared to the prior echo study, there has been an increase in the severity of mitral regurgitation. There is moderate tricuspid regurgitation. Compared to the prior echo exam, there has been an increase in TR severity. Compared to the prior echo exam, there has been an increase in the severity of pulmonary hypertension. Procedure: A two-dimensional transthoracic echocardiogram with color flow and Doppler was performed. The study quality was technically difficult. Comparison is made with the echocardiogram of 11/10/2022. A contrast injection of Definity was performed to improve assessment of LV function. Slow atrial flutter versus sinus tachycardia with heart rate 104 to 111 bpm. Underlying bundle branch block. Occasional PVCs. Left Ventricle: The left ventricle is moderately dilated. There is normal left ventricular wall thickness. There is no thrombus. The ejection fraction is estimated to be 15-20%. Left ventricular systolic function is severely reduced. There is severe global hypokinesis of the left ventricle. Diastolic function could not be accurately assessed due to tachycardia. Right Ventricle: The right ventricle is moderately dilated. Right ventricular systolic function is moderately reduced. Right ventricular systolic function has decreased since previous exam. Atria: The left atrium is severely dilated. There has been no significant change since the previous study. The right atrium is severely dilated. There is no Doppler evidence for an interatrial shunt. Mitral Valve: Tented mitral leaflets. There is no mitral valve stenosis. There is moderate mitral regurgitation. Compared to the prior echo study, there has been an increase in the severity of mitral regurgitation. Aortic Valve: The aortic valve is trileaflet. There is mild aortic valve sclerosis. There is no aortic valve stenosis. There is trace aortic regurgitation. Tricuspid Valve: The tricuspid valve is not well visualized. The tricuspid annulus is dilated. There is no tricuspid stenosis. There is moderate tricuspid regurgitation. The right ventricular systolic pressure is estimated to be at least 47 mmHg based on an estimated right atrial pressure of 8 mm Hg. Compared to the prior echo exam, there has been an increase in TR severity. Compared to the prior echo exam, there has been an increase in the severity of pulmonary hypertension. Pulmonic Valve: The pulmonic valve is not well visualized. There is no pulmonic valvular stenosis. There is trace pulmonic regurgitation. Great Vessels: The aortic root is mildly dilated. The ascending aorta is normal in size. The pulmonary artery is normal size. The IVC is dilated (diameter is greater than 2.1 cm) yet it collapses greater than 50% with a sniff. This suggests a right atrial pressure of 8 mm Hg. Pericardium/ Pleura There is a trivial pericardial effusion noted. There is no pleural effusion. MMode/2D Measurements & Calculations LVIDd: 6.2 cm LVOT diam: 2.4 cm LVIDs: 5.3 cm Ao root diam: 4.1 cm FS: 14.5 % asc Aorta Diam: 3.4 cm IVSd: 1.1 cm LVPWd: 0.80 cm LV arreola. diameter/BSA (cm/m^2): 2.6 LV sys. diameter/BSA (cm/m^2): 2.2 LA A2 area: 35.8 cm2 RA long axis: 7.4 cm LA A4 area: 28.9 cm2 RA area: 38.9 cm2 LA length (vol): 7.0 cm RA vol: 174.3 ml LA vol: 126.0 ml RA : 71.9 ml/m2 LA vol index: 52.0 ml/m2 IVC diam: 2.6 cm RVD1 (basal): 5.4 cm LVLs ap4: 8.3 cm LVLd ap2: 7.7 cm TAPSE_phl: 1.6 cm LVLs ap2: 7.9 cm Doppler Measurements & Calculations Ao V2 max: 71.5 cm/sec LVOT Max Apolinar: 45.4 cm/sec Ao V2 mean: 50.4 cm/sec LV V1 max P.82 mmHg Ao max P.0 mmHg LV V1 VTI: 6.8 cm Ao mean P.0 mmHg EDIN(I,D): 2.8 cm2 Ao V2 VTI: 10.9 cm EDIN(V,D): 2.9 cm2 sev ratio: 0.62 EDIN indexed to BSA (cm^2/m^2): 1.2 TR max apolinar: 311.0 cm/sec SV(LVOT): 30.8 ml TR max P.7 mmHg AV VR_phl: 0.63 EDIN(VTI)/BSA_phl: 1.2 Reading Physician:04:05 PM
== END ==
PROVIDERS: PCP Registered Nurse; Referring Provider Nurse Practitioner Acute Care; Visit Provider Nurse Practitioner Acute Care
DX: I50.21 Acute systolic (congestive) heart failure (principal); I48.92 Unspecified atrial flutter; I08.3 Combined rheumatic disorders of mitral, aortic and tricuspid valves
CPT/HCPCS: 93306

== ENCOUNTER 2023-02-14 09:32 | Emergency (ER) | payer MEDICARE, OTHER, SELFPAY ==
[2022-11-10 12:33] VITALS: BMI 35.7
[2023-02-14] VITALS (31 sets, daily range): BP systolic 127–154; BP diastolic 66–96; PULSE 48–118; RESP 12–35; TEMP 36.7; O2SAT 92–98; BMI 38.0
--- NOTE | 2023-02-14 09:47 | ED_ITS ---
HPI - SOB/Dyspnea General Chief Complaint: Shortness of Breath/Dyspnea Stated Complaint: cant catch breath Time Seen by Provider: 02/14/23 09:45 Source: patient Mode of arrival: Wheelchair Limitations: no limitations History of Present Illness HPI Narrative: This is a 77-year-old male with history of hypertension, dyslipidemia, atrial flutter on apixaban with complaint of increasing shortness of breath. Patient states he is had shortness of breath since October but had an ablation a week ago last Sunday, 8 days ago. He had this performed with Dr. Meyers [facility] for his atrial flutter. States since then he is had increasing shortness of breath denies any chest pain or pressure. No fevers, no cold cough or congestion. He has had some increase in weight. He is had increased swelling in his lower extremities in the past week going up into his shins. He is had increasing dyspnea with exertion and even taking a shower where some out. He states this is new in the past week and worsening over the past day or so. Patient states no diarrhea, constipation, no dysuria urgency or frequency. He states no black or bloody stools. 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 Patient took his Eliquis, Plavix and losartan this morning. He states he has not had any prior cardiac stents, no other surgeries besides his ablation. He has had 2 electrical cardioversions in the past. Patient states he is had prior back surgeries x3 in the . And left knee replacement remotely. Denies any drug allergies. Use to smoke a pipe, no regular alcohol, no recreational drug use. Tonja Chaidez is his PCP. Dr. Meyers is his shim plug cutter at [facility]. Related Data Home Medications Medication Instructions Recorded Confirmed Respironics DreamStation CPAP #1 ea 12/15/21 02/14/23 atorvastatin 40 mg tablet 40 mg PO BEDTIME 11/09/22 02/14/23 clopidogrel 75 mg tablet 75 mg PO DAILY 11/09/22 02/14/23 apixaban 5 mg tablet (Eliquis) 5 mg PO BID 02/14/23 02/14/23 losartan 25 mg tablet 12.5 mg PO DAILY 02/14/23 02/14/23 metoprolol succinate 50 mg 25 mg PO BEDTIME 02/14/23 02/14/23 tablet,extended release 24 hr terbinafine HCl 250 mg tablet 250 mg PO DAILY 02/14/23 02/14/23 Previous Rx's Medication Instructions Recorded furosemide 40 mg tablet (Lasix) 40 mg PO DAILY #7 tabs 02/14/23 Allergies Allergy/AdvReac Type Severity Reaction Status Date / Time No Known Drug Allergies Allergy Verified 02/14/23 09:41 Review of Systems Review of Systems ROS Unobtainable: All systems reviewed & are unremarkable except as noted in HPI and below Patient History Medical History Obesity (BMI 30-39.9) Obstructive sleep apnea of adult Primary insomnia Snoring Agent orange exposure Prostate cancer Coronary artery disease Surgical History History of lumbar fusion Social History household members: spouse Smoking Status: Former smoker alcohol intake: former substance use type: does not use Smoking Status: Former smoker alcohol intake frequency: holidays/special occasions only Substance Use Type: does not use Exam Narrative Exam Narrative: GEN: Elderly appearing male, alert and oriented x 3, patient appears to be in mild to moderate distress. HEENT: Atraumatic, pupils are equal round reactive to light, extraocular movements are intact, bilateral xanthelasma nares are clear, there is no conjunctival pallor. Throat is clear without any exudates, erythema, tonsillar enlargement or uvular deviation HEART: Regular rate and rhythm without murmur, clicks, rubs. Pulses are equal in upper and lower extremities. Patient has 2+ edema bilateral lower extremities. LUNGS:Lungs clear to auscultation, no wheezes, rales, crackles, chest moves symmetrically, mild tachypnea. No accessory muscle use. ABD:bowel sounds normal, soft, non-tender, no guarding, rebound, rigidity, no masses noted, no hepatosplenomegaly :No CVA tenderness MSCL: Non-tender, no muscle atrophy, muscles strength 5/5 upper and lower extremities, full range of motion, normal gait NEURO:CN 2-12 intact, sensation normal SKIN: No rash, erythema or other skin changes Initial Vital Signs Initial Vital Signs: Vital Signs Temperature 98.0 F 02/14/23 09:35 Pulse Rate 59 L 02/14/23 09:35 Respiratory Rate 22 02/14/23 09:35 Blood Pressure 145/78 H 02/14/23 09:35 Pulse Oximetry 97 02/14/23 09:35 Oxygen Delivery Method Room Air 02/14/23 09:35 Course Orders Ordered: ED Orders 02/14/23 09:50 BNP [NT-proBNP (BNP-Adult 18+)] Stat Complete Blood Count AUTO DIFF Stat Comprehensive Metabolic Panel Stat Lipase Stat Magnesium Stat PTT Partial Thromboplastin Domenic Stat Prothrombin Time INR Stat Troponin & CK Cardiac Panel Stat 02/14/23 09:53 XR chest 1V Stat EKG-12 Lead Stat 02/14/23 11:13 CT angio chest PE protocol Stat 02/14/23 12:03 EKG-12 Lead Stat 02/14/23 13:53 EKG-12 Lead Urgent Discontinued Medications Furosemide (Furosemide 40 Mg/4 Ml Vial) 40 mg IV NOW ONE Stop: 02/14/23 10:10 Last Admin: 02/14/23 10:20 Dose: 40 mg Documented By: KO Metoprolol Tartrate (Metoprolol Tartrate 5 Mg/5 Ml Inj) 5 mg IV NOW ONE Stop: 02/14/23 12:35 Last Admin: 02/14/23 12:47 Dose: Not Given Documented By: KO Vital Signs Vital signs: Vital Signs - 8 hr 02/14/23 10:00 02/14/23 10:01 02/14/23 10:01 Pulse Rate 53 L 52 L Respiratory Rate 22 20 Blood Pressure 154/78 H Pulse Oximetry 97 97 Oxygen Delivery Method 02/14/23 10:15 02/14/23 10:30 02/14/23 10:30 Pulse Rate 49 L 48 L Respiratory Rate 18 20 Blood Pressure 144/76 H Pulse Oximetry 97 97 Oxygen Delivery Method 02/14/23 10:54 02/14/23 11:00 02/14/23 11:12 Pulse Rate 54 L 58 L 48 L Respiratory Rate 33 H 28 H 26 H Blood Pressure Pulse Oximetry 98 96 Oxygen Delivery Method Room Air 02/14/23 11:12 02/14/23 11:15 02/14/23 11:30 Pulse Rate 48 L 50 L Respiratory Rate 30 H 24 Blood Pressure 141/69 H Pulse Oximetry 98 95 Oxygen Delivery Method 02/14/23 11:48 02/14/23 11:49 02/14/23 11:49 Pulse Rate 118 H 107 H Respiratory Rate 27 H 24 Blood Pressure 141/94 H Pulse Oximetry 92 96 Oxygen Delivery Method 02/14/23 12:00 02/14/23 12:00 02/14/23 12:15 Pulse Rate 105 H 109 H Respiratory Rate 23 32 H Blood Pressure 139/96 H Pulse Oximetry 96 94 Oxygen Delivery Method 02/14/23 12:30 02/14/23 12:30 02/14/23 12:48 Pulse Rate 108 H 113 H Respiratory Rate 35 H 20 Blood Pressure 133/96 H Pulse Oximetry 96 96 Oxygen Delivery Method 02/14/23 13:00 02/14/23 13:00 02/14/23 13:15 Pulse Rate 100 H 104 H Respiratory Rate 21 26 H Blood Pressure 135/80 Pulse Oximetry 96 96 Oxygen Delivery Method Room Air 02/14/23 13:30 02/14/23 13:31 02/14/23 13:31 Pulse Rate 105 H 109 H Respiratory Rate 30 H 34 H Blood Pressure 127/80 Pulse Oximetry 95 97 Oxygen Delivery Method 02/14/23 13:45 02/14/23 13:51 02/14/23 13:51 Pulse Rate 104 H 49 L Respiratory Rate 22 27 H Blood Pressure 147/76 H Pulse Oximetry 97 97 Oxygen Delivery Method 02/14/23 13:55 02/14/23 13:55 02/14/23 14:00 Pulse Rate 57 L 49 L Respiratory Rate 22 21 Blood Pressure 136/66 Pulse Oximetry 96 97 Oxygen Delivery Method 02/14/23 14:00 02/14/23 14:05 02/14/23 14:05 Pulse Rate 49 L Respiratory Rate 23 Blood Pressure 136/69 136/75 Pulse Oximetry 96 Oxygen Delivery Method 02/14/23 14:10 02/14/23 14:10 02/14/23 14:24 Pulse Rate 49 L 52 L Respiratory Rate 21 12 Blood Pressure 135/77 Pulse Oximetry 97 98 Oxygen Delivery Method Room Air 02/14/23 14:24 02/14/23 14:25 02/14/23 14:25 Pulse Rate 51 L Respiratory Rate 20 Blood Pressure 139/81 146/79 H Pulse Oximetry 98 Oxygen Delivery Method 02/14/23 14:30 02/14/23 14:30 Pulse Rate 48 L Respiratory Rate 22 Blood Pressure 143/78 H Pulse Oximetry 97 Oxygen Delivery Method Room Air MDM - SOB/Dyspnea Lab Data 02/14/23 09:50 02/14/23 09:50 Labs: Lab Results 02/14/23 Range/Units 09:50 WBC 5.9 (4.5-11.0) X10^3/uL RBC 4.70 (4.5-5.9) X10^6/uL Hgb 14.5 (13.5-17.5) g/dL Hct 42.9 (41-53) % MCV 91.2 (80-100) fL MCH 30.9 (26-34) PG MCHC 33.9 (30-36) % RDW 15.6 H (11.6-14.8) % Plt Count 166 (150-400) X10^3/uL Neut % (Auto) 70.0 (50-75) % Lymph % (Auto) 12.9 L (25-40) % Edmonson % (Auto) 13.7 (3-14) % Eos % (Auto) 2.5 (2-4) % Baso % (Auto) 0.9 (0-2) % Neut # (Auto) 4100 (6820-2379) /uL Lymph # (Auto) 800 L (1302-8223) /uL Edmonson # (Auto) 800 (0-900) /uL Eos # (Auto) 200 (0-450) /uL Baso # (Auto) 100 (0-100) /uL PT 23.9 H (9.4-12.5) SECONDS INR 2.1 H (0.9-1.3) APTT 35 (25.1-36.5) SECONDS Sodium 141 (137-145) mmol/L Potassium 3.9 (3.4-5.1) mmol/L Chloride 106 (98-107) mmol/L Carbon Dioxide 29 (22-32) mmol/L BUN 20 (9-20) mg/dL Creatinine 1.22 (0.66-1.25) mg/dL Estimated GFR > 60 (>60) mL/min BUN/Creatinine Ratio 16.4 (6-22) Glucose 93 (80-110) mg/dL Calcium 9.0 (8.4-10.2) mg/dL Magnesium 1.7 (1.6-2.3) mg/dL Total Bilirubin 2.9 H (0.2-1.3) mg/dL AST 22 (17-59) IU/L ALT 18 (<50) IU/L Alkaline Phosphatase 60 (38-126) U/L Total Creatine Kinase 64 (55-170) U/L Troponin I < 0.012 (0.01-0.034) ng/mL NT-Pro-B Natriuret Pep 5750 H (<450) pg/mL Total Protein 6.8 (6.3-8.2) g/dL Albumin 3.9 (3.5-5.0) g/dL Globulin 2.9 (1.7-4.1) g/dL Albumin/Globulin Ratio 1.3 (1.0-2.8) Lipase 63 (23-300) U/L Imaging Data Chest x-ray: Radiologist's Impression: [address] [address] XRay Report Signed Patient: Jamie Brambila MR#: [id number] : 1945 Acct:[id number] Age/Sex: 77 / M Date of Service: 02/14/23 Loc: ED Accession Number: [id number] Procedure: XR chest 1V Ordering Provider: Rena Gonzalez D.O. PROCEDURE: XR CHEST 1V INDICATIONS: chest pain TECHNIQUE: One view of the chest was acquired. COMPARISON: [facility], , XR CHEST 1V, 12/14/2022, 15:06. FINDINGS: Surgical changes and devices: None. Lungs and pleura: Lung volumes are low. There are increased interstitial markings bilaterally. There are small bilateral pleural effusions and basilar radiopacities. Mediastinum: Mediastinal contours appear normal. Heart size is enlarged, as before. Bones and chest wall: No suspicious bony lesions. Overlying soft tissues appear unremarkable. IMPRESSION: 1. Cardiomegaly, pleural effusions and interstitial prominence suggesting congestive failure. 2. Bibasilar pulmonary radiopacities likely related to compressive atelectasis. However, infection/aspiration could also cause this appearance. Dictated by: Brynn Powell M.D. on 02/14/2023 at 10:24 Approved by: Brynn Powell M.D. on 02/14/2023 at 10:24 CT scan - chest: Radiologist's Impression: [address] [address] [address] Scan Report Signed Patient: Jamie Brambila MR#: [id number] : 1945 Acct:[id number] Age/Sex: 77 / M Date of Service: 02/14/23 Loc: ED Accession Number: [id number] Procedure: CT angio chest PE protocol Ordering Provider: Rena Gonzalez D.O. PROCEDURE: CT ANGIO CHEST PE PROTOCOL INDICATIONS: 8 days s/p ablation, increasing sob. TECHNIQUE: After the administration of intravenous contrast, 2 mm thick sections acquired from the pulmonary apices to the posterior costophrenic angles. 3-dimensional maximum intensity projection (MIP) coronal and sagittal reformats were then acquired through the thorax. For radiation dose reduction, the following was used: automated exposure control, adjustment of mA and/or kV according to patient size. COMPARISON: None. FINDINGS: Image quality: Diagnostic. Pulmonary arteries: Pulmonary arteries are normal in size, and demonstrate no intraluminal filling defects to suggest central pulmonary embolism. Lungs and pleura: Moderate bilateral pleural effusions. Associated compressive bibasilar atelectasis. No pulmonary edema. Mediastinum: Cardiomegaly with left ventricular, left atrial, and right atrial enlargement. Severe coronary artery calcifications. Reflux of contrast into the hepatic veins suggests possible right heart failure. No mediastinal or hilar adenopathy. Thoracic aorta is normal in caliber and enhancement. Esophagus is normal in caliber, without hiatal hernia. Bones and chest wall: No suspicious bony lesions. Ribs and thoracic spine appear intact throughout. No axillary or supraclavicular adenopathy. No thyroid nodules which require sonographic follow up, per consensus guidelines. diffuse degenerative change. Incidental note made of severe or high-grade canal stenosis at L1-L2. Abdomen: Visualized upper abdominal solid organs appear normal in the early arterial phase of enhancement. IMPRESSION: 1. No pulmonary emboli. 2. Cardiomegaly, severe coronary artery calcifications. 3. Moderate bilateral pleural effusions and associated compressive bibasilar atelectasis likely represents compensated congestive heart failure. 4. Reflux of contrast into the hepatic veins suggests probable right heart failure. 5. Severe or high-grade canal stenosis at the lowest image level, L1-L2, incidentally noted. Dictated by: Davis Holden M.D. on 02/14/2023 at 12:07 Approved by: Davis Holden M.D. on 02/14/2023 at 12:12 ECG Data Attestation: I personally reviewed and interpreted this ECG as follows: Prior ECG tracings: available for review Interpretation: Sinus bradycardia rate of 54 [place] 174 QRS of 142 QTC of 462. Sinus bradycardia with right bundle-branch block, left anterior fascicular block, patient has prior from 12/14/2022 does appear similar there is some possible motion artifact in V5. No acute ST changes appreciated. AFib right bundle-branch left anterior fascicular rate of 98 IL 142 QTC of 462. Sinus rhythm rate of 50 IL 170 QRS of 138 QTC 492. No acute or dynamic ST changes. Patient does appear to be in sinus rhythm with a right bundle and left anterior fascicular block. MDM Narrative Medical decision making narrative: 77-year-old male presents with complaint of increasing shortness of breath, dyspnea on exertion, swelling of bilateral extremities without chest pain he is had mild symptoms since October but states it has been worsening in the past 8 days after he had an ablation for atrial flutter. Patient is bradycardic, tachypneic with exertion. 97% on room air no hypotension. Afebrile. Suspect patient is having acute congestive heart failure on top of likely underlying disease. He is anticoagulated appropriately on Eliquis he is also on Plavix, losartan noted his metoprolol was decreased yesterday. He is also on atorvastatin daily intermittent aphasia. EKG appears to have sinus rhythm does not appear to have any persistent flutter or heart block. Patient lungs are clear but he has bilateral lower extremity edema with clinical symptoms of CHF. Labs show normal CBC with no elevation leukocytosis, normal platelets, no leftward shift. Normal hemoglobin. INR is 2.1, electrolytes appropriate renal function appears to be at baseline. Total bilirubin is 2.9 but otherwise normal LFTs troponin is negative with a BNP of 5750, patient has been as high as 6970 in his lowest 2300 on 2 prior checks. Chest x-ray showed changes consistent with CHF, cardiomegaly, pleural effusions interstitial prominence bibasilar pulmonary opacities likely compressive atelectasis but could be infection/aspiration. Patient received Lasix [address] Meyers, electrophysiology. Would ask that you would a CC scan of the chest just to evaluate for pericardial effusion. If patient continues not to be hypoxic and is tolerating can put him on Lasix continue at the lower dose of metoprolol and have patient follow up with the office shortly. Asked for call back if pericardial effusion or other changes. CTA shows no pulmonary emboli, cardiomegaly, severe coronary artery calcifications reflux contrast in the hepatic veins suggesting right heart failure no pericardial effusion noted. Patient knows atrial fibrillation rate 110. Dr. Meyers asked that we cardiovert the patient continue him with Lasix and increase his metoprolol back to his previous dose. After some discussion patient ultimately decided he would like cardioversion. Just before we proceeded he appears to have cardioverted into a sinus rhythm. We will hold off on cardioversion. Discussed with patient we will not increase his metoprolol if he is at a rate in the 50s but he is having a persistently elevated heart rate in the 100 range or higher to take an additional dose of his metoprolol. 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 You do appear to have some congestive heart failure today, you have converted back into a sinus rhythm without any medication or an electrical cardioversion. Continue your home medications as prescribed. If your heart rate is elevated in the 100 range or above you may take your metoprolol an additional 25 mg dose of metoprolol succinate for a total of 50mg in one day) If you are heart rate is in the the 90s or below continue with your 25 mg metoprolol succinate dose. Take Lasix once daily until completed. Prescription sent to [facility] in [place] Please return for increasing chest pain, shortness of breath, lightheadedness or passing out, increasing swelling of her extremities or other new or concerning changes. Prescriptions: New furosemide [Lasix] 40 mg tablet 40 mg PO DAILY Qty: 7 0RF No Action atorvastatin 40 mg tablet 40 mg PO BEDTIME clopidogrel 75 mg tablet 75 mg PO DAILY metoprolol succinate 50 mg tablet extended release 24 hr 25 mg PO BEDTIME terbinafine HCl 250 mg tablet 250 mg PO DAILY losartan 25 mg tablet 12.5 mg PO DAILY Eliquis 5 mg tablet 5 mg PO BID (DME) Respironics DreamStation CPAP Qty: 1 Dose Instruction: As directed Patient Comments: Pressure: 5-14 cmH2O DME: [facility] ASMITA: 03/14/17 Rx Instructions: As directed Referrals: Tonja Chaidez ARNP [Primary Care Provider] - Stand Alone Forms: Patient Portal/API
--- NOTE | 2023-02-14 09:53 | DI.RAD.S_ITS ---
PROCEDURE: XR CHEST 1V INDICATIONS: chest pain TECHNIQUE: One view of the chest was acquired. COMPARISON: [facility], CR, XR CHEST 1V, 12/14/2022, 15:06. FINDINGS: Surgical changes and devices: None. Lungs and pleura: Lung volumes are low. There are increased interstitial markings bilaterally. There are small bilateral pleural effusions and basilar radiopacities. Mediastinum: Mediastinal contours appear normal. Heart size is enlarged, as before. Bones and chest wall: No suspicious bony lesions. Overlying soft tissues appear unremarkable. IMPRESSION: 1. Cardiomegaly, pleural effusions and interstitial prominence suggesting congestive failure. 2. Bibasilar pulmonary radiopacities likely related to compressive atelectasis. However, infection/aspiration could also cause this appearance. Dictated by: Brynn Powell M.D. on 02/14/2023 at 10:24 Approved by: Brynn Powell M.D. on 02/14/2023 at 10:24
[2023-02-14 09:59] LABS: Add Manual Diff / Slide Review NO; Basophils Absolute Auto 100 /uL (0-100); Basophils Percent Auto 0.9 % (0-2); Eosinophils Absolute Auto 200 /uL (0-450); Eosinophils Percent Auto 2.5 % (2-4); Hematocrit 42.9 % (41-53); Hemoglobin 14.5 g/dL (13.5-17.5); Lymphocytes Absolute Auto 800 /uL (1100-4500); Lymphocytes Percent Auto 12.9 % (25-40); Mean Corpuscular HGB Conc 33.9 % (30-36); Mean Corpuscular Hemoglobin 30.9 PG (26-34); Mean Corpuscular Volume 91.2 fL (80-100); Monocytes Absolute Auto 800 /uL (0-900); Monocytes Percent Auto 13.7 % (3-14); Neutrophils Absolute Auto 4100 /uL (1500-7000); Platelet Count 166 X10^3/uL (150-400); Red Cell Distribution Width 15.6 % (11.6-14.8); White Blood Cell Count 5.9 X10^3/uL (4.5-11.0)
[2023-02-14 10:07] LABS: INR 2.1 (0.9-1.3); Prothrombin Time 23.9 SECONDS (9.4-12.5)
[2023-02-14 10:10] LABS: PTT Partial Thromboplastin Tim 35 SECONDS (25.1-36.5)
[2023-02-14 10:11] LABS: Alanine Aminotransferase 18 IU/L (<50); Albumin 3.9 g/dL (3.5-5.0); Albumin Globulin Ratio 1.3 (1.0-2.8); Alkaline Phosphatase 60 U/L (38-126); Aspartate Aminotransferase 22 IU/L (17-59); BUN Creatinine Ratio 16.4 (6-22); Bilirubin Total 2.9 mg/dL (0.2-1.3); Blood Urea Nitrogen 20 mg/dL (9-20); Carbon Dioxide 29 mmol/L (22-32); Chloride 106 mmol/L (98-107); Creatine Kinase 64 U/L (55-170); Estimated Glomerular Filt Rate > 60 mL/min (>60); Globulin 2.9 g/dL (1.7-4.1); Glucose 93 mg/dL (80-110); HEMOLYSIS 17 (0-50); Lipase 63 U/L (23-300); Magnesium 1.7 mg/dL (1.6-2.3); Potassium 3.9 mmol/L (3.4-5.1); Sodium 141 mmol/L (137-145); Total Protein 6.8 g/dL (6.3-8.2)
[2023-02-14] MEDS: FUROSEMIDE 40 MG/4 ML VIAL IV (10:20)
[2023-02-14 10:22] LABS: NT-proBNP (BNP-Adult 18+) 5750 pg/mL (<450); Troponin I < 0.012 ng/mL (0.01-0.034)
--- NOTE | 2023-02-14 11:13 | DI.CT.S_ITS ---
PROCEDURE: CT ANGIO CHEST PE PROTOCOL INDICATIONS: 8 days s/p ablation, increasing sob. TECHNIQUE: After the administration of intravenous contrast, 2 mm thick sections acquired from the pulmonary apices to the posterior costophrenic angles. 3-dimensional maximum intensity projection (MIP) coronal and sagittal reformats were then acquired through the thorax. For radiation dose reduction, the following was used: automated exposure control, adjustment of mA and/or kV according to patient size. COMPARISON: None. FINDINGS: Image quality: Diagnostic. Pulmonary arteries: Pulmonary arteries are normal in size, and demonstrate no intraluminal filling defects to suggest central pulmonary embolism. Lungs and pleura: Moderate bilateral pleural effusions. Associated compressive bibasilar atelectasis. No pulmonary edema. Mediastinum: Cardiomegaly with left ventricular, left atrial, and right atrial enlargement. Severe coronary artery calcifications. Reflux of contrast into the hepatic veins suggests possible right heart failure. No mediastinal or hilar adenopathy. Thoracic aorta is normal in caliber and enhancement. Esophagus is normal in caliber, without hiatal hernia. Bones and chest wall: No suspicious bony lesions. Ribs and thoracic spine appear intact throughout. No axillary or supraclavicular adenopathy. No thyroid nodules which require sonographic follow up, per consensus guidelines. diffuse degenerative change. Incidental note made of severe or high-grade canal stenosis at L1-L2. Abdomen: Visualized upper abdominal solid organs appear normal in the early arterial phase of enhancement. IMPRESSION: 1. No pulmonary emboli. 2. Cardiomegaly, severe coronary artery calcifications. 3. Moderate bilateral pleural effusions and associated compressive bibasilar atelectasis likely represents compensated congestive heart failure. 4. Reflux of contrast into the hepatic veins suggests probable right heart failure. 5. Severe or high-grade canal stenosis at the lowest image level, L1-L2, incidentally noted. Dictated by: Davis Holden M.D. on 02/14/2023 at 12:07 Approved by: Davis Holden M.D. on 02/14/2023 at 12:12
--- NOTE | 2023-02-14 12:09 | PC.NURSE ---
Pt heart rate increased from 50s to >[address] Gonzalez aware. EKG ordered. Pt requested that he pee prior to EKG. RN informed p of urgency of obtaining EKG prior to peeing, pt states he needs to pee prior. RN assisted pt to commode attached to heart monitor. Pt currently symptom free of increased HR. Will obtain EKG after pt is done peeing, per pt request.
== END 2023-02-14 14:41 | disposition home or self-care (01) ==
PROVIDERS: Emergency Provider Emergency Medicine; PCP Registered Nurse
DX: I11.0 Hypertensive heart disease with heart failure (principal); I50.9 Heart failure, unspecified; R00.1 Bradycardia, unspecified; I45.10 Unspecified right bundle-branch block; Z86.79 Personal history of other diseases of the circulatory system; Z87.891 Personal history of nicotine dependence
CPT/HCPCS: 36415; 71045; 71275; 80053; 82550; 83690; 83735; 83880; 84484; 85025; 85610; 85730; 93005; 93010; 96374; 99284; 99285; J1940; Q9967

== ENCOUNTER → 2023-05-25 12:43 | Outpatient (CLI) | payer MEDICARE, OTHER, SELFPAY ==
[2022-11-10 12:33] VITALS: BMI 35.7
--- NOTE | 2023-05-25 12:45 | DI.ECHO.S_ITS ---
[facility] +---------+ [facility] +---------+ : : [address] : : : : [id number] : : : : Phone: [phone]+ Echocardiogram Report + + :Name: YELENA HEREDIA Study Date: 05/25/2023 Height: 73 in : :[facility] ReadingLocation: Weight: 260 lb : : Gender: Male BSA: 2.4 m2 : :: 1945 Age: 77 yrs BP: 103/75 mmHg: :Reason For Study: TACHYCARDIA : :Ordering Physician: SHEILA, : :RUFINO Torre Performed By: Jody Jefferson : :Referring: RUFINO SOSA : + + Interpretation Summary The left ventricle is moderately dilated. The ejection fraction is estimated to be 15-20%. There is severe global hypokinesis of the left ventricle. There has been no significant change in LVEF since the previous exam. The right ventricle is at the upper limits of normal in size. Right ventricular size has decreased since the prior echo exam. Right ventricular systolic function is mildly reduced. Previously moderately reduced. There is mild mitral regurgitation. Compared to the prior echo study, there has been a decrease in the severity of mitral regurgitation. Previously moderate MR. There is mild tricuspid regurgitation. Compared to the prior echo exam, there has been a decrease in TR severity. Previously moderate TR. The right ventricular systolic pressure is estimated to be at least 29 mmHg based on an estimated right atrial pressure of 3 mm Hg. Previously 47 mmHg. Compared to the prior echo exam, there has been a decrease in the severity of pulmonary hypertension. Procedure: A two-dimensional transthoracic echocardiogram with color flow and Doppler was performed. The study quality was technically adequate. Comparison is made with the echocardiogram of 01/22/2023. The heart rate ranged between 106-109 bpm during the study. The patient was in atrial flutter during the exam. Left Ventricle: The left ventricle is moderately dilated. Left ventricular wall thickness is mildly increased. There is no thrombus. A false chord is noted (normal variant). The ejection fraction is estimated to be 15-20%. There has been no significant change since the previous exam. There is severe global hypokinesis of the left ventricle. Compared to the prior exam, the left ventricular wall motion has not changed. Right Ventricle: The right ventricle is at the upper limits of normal in size. Right ventricular size has decreased since the prior echo exam. Right ventricular systolic function is mildly reduced. Atria: The left atrium is severely dilated. There has been no significant change since the previous study. The right atrium is mildly dilated. The right atrium has significantly decreased in size since the prior echo exam. There is no Doppler evidence for an interatrial shunt. Mitral Valve: Tented mitral leaflets. There is mild mitral regurgitation. Compared to the prior echo study, there has been a decrease in the severity of mitral regurgitation. Aortic Valve: The aortic valve is trileaflet. The aortic valve is slightly calcified. There is no aortic valve stenosis. No aortic regurgitation is present. Tricuspid Valve: The tricuspid valve is not well visualized, but is grossly normal. There is mild tricuspid regurgitation. The right ventricular systolic pressure is estimated to be at least 29 mmHg based on an estimated right atrial pressure of 3 mm Hg. Compared to the prior echo exam, there has been a decrease in TR severity. Compared to the prior echo exam, there has been a decrease in the severity of pulmonary hypertension. Pulmonic Valve: The pulmonic valve leaflets are thin and pliable; valve motion is normal. There is no pulmonic valvular regurgitation. Great Vessels: The aortic root is borderline dilated. The dimensions of the ascending aorta are normal. The IVC is of normal diameter and collapses greater than 50% with a sniff. This suggests a low right atrial pressure of 3 mm Hg. Pericardium/ Pleura There is no pericardial effusion. There is no pleural effusion. MMode/2D Measurements & Calculations LVIDd: 6.5 cm LVOT diam: 2.4 cm LVIDs: 5.6 cm Ao root diam: 4.0 cm FS: 13.9 % asc Aorta Diam: 3.4 cm EPSS: 1.1 cm Ao Arch Diam (Prox Trans): 1.7 cm IVSd: 1.1 cm LVPWd: 0.97 cm LV arreola. diameter/BSA (cm/m^2): 2.7 LV sys. diameter/BSA (cm/m^2): 2.3 LA A2 area: 29.9 cm2 RA long axis: 7.2 cm LA A4 area: 31.3 cm2 RA area: 29.1 cm2 LA length (vol): 7.5 cm RA vol: 99.7 ml LA vol: 106.3 ml RA : 41.5 ml/m2 LA vol index: 44.2 ml/m2 IVC diam: 1.2 cm RVD1 (basal): 4.1 cm RVD2 (mid): 3.3 cm TAPSE: 2.1 cm Doppler Measurements & Calculations Ao V2 max: 89.9 cm/sec LVOT Max Apolinar: 68.1 cm/sec Ao V2 mean: 73.2 cm/sec LV V1 max P.9 mmHg Ao max P.2 mmHg LV V1 VTI: 8.9 cm Ao mean P.3 mmHg EDIN(I,D): 2.7 cm2 Ao V2 VTI: 14.3 cm EDIN(V,D): 3.3 cm2 sev ratio: 0.62 EDIN indexed to BSA (cm^2/m^2): 1.1 MV E max apolinar: 64.9 cm/sec TR max apolinar: 254.7 cm/sec MV A max apolinar: 0.81 cm/sec TR max P.9 mmHg MV E/A: 80.4 PA pr(Accel): 48.2 mmHg Med Peak E' Apolinar: 8.4 cm/sec E/E' med: 7.7 Lat Peak E' Apolinar: 5.5 cm/sec E/E' lat: 11.7 E/e' average: 9.7 MV dec time: 0.15 sec SV(LVOT): 39.0 ml Reading Physician:04:13 PM
== END ==
PROVIDERS: PCP Registered Nurse; Referring Provider Nurse Practitioner; Visit Provider Nurse Practitioner
DX: I08.1 Rheumatic disorders of both mitral and tricuspid valves (principal); I48.92 Unspecified atrial flutter; R00.0 Tachycardia, unspecified; I43 Cardiomyopathy in diseases classified elsewhere; I27.20 Pulmonary hypertension, unspecified
CPT/HCPCS: 93306

== ENCOUNTER → 2024-05-08 08:38 | Outpatient (CLI) | payer MEDICARE, OTHER, SELFPAY ==
[2022-11-10 12:33] VITALS: BMI 35.7
== END ==
LOC: RESP 08:39
PROVIDERS: PCP Registered Nurse; Referring Provider Internal Medicine Cardiovascular Disease; Visit Provider Internal Medicine Cardiovascular Disease
DX: R94.2 Abnormal results of pulmonary function studies (principal); J98.8 Other specified respiratory disorders; Z79.899 Other long term (current) drug therapy; Z87.891 Personal history of nicotine dependence
CPT/HCPCS: 94060; 94726; 94729

== ENCOUNTER → 2024-05-21 13:42 | Outpatient (CLI) | payer MEDICARE, OTHER, SELFPAY ==
[2022-11-10 12:33] VITALS: BMI 35.7
--- NOTE | 2024-05-21 13:43 | DI.ECHO.S_ITS ---
[facility] +---------+ [facility] : : [address] : : [place] : : [id number] : : Phone: [phone] Echocardiogram Report + + :Name: YELENA HEREDIA Study Date: 05/21/2024 Height: 73 in : :Hospital ReadingLocation: Weight: 260 lb: : Gender: Male BSA: 2.4 m2 : :: 1945 Age: 78 yrs : :Reason For Study: HEART FAILURE : :Ordering Physician: SRINIVASA, : :BIDR Performed By: Jody Jefferson : :Referring: BIRD BERNABE : + + Interpretation Summary Limited study the left ventricle is mild-moderately dilated. Previously moderately dilated. Previous end-diastolic dimension 6.6 cm. In this study 6.3 cm. The left ventricular ejection fraction is normal. The ejection fraction is estimated to be 55-60%. Previous 35 to 40%. In comparison to previous study, LV function has significantly improved. Procedure: Images were not obtained from all of the standard acoustic windows due to the limited scope of the study. The study quality was technically difficult. A contrast injection of Definity was performed to improve assessment of LV function. The patient was in normal sinus rhythm during the exam. Left Ventricle: The left ventricle is mild-moderately dilated. There is normal left ventricular wall thickness. There is no thrombus. The left ventricular ejection fraction is normal. The ejection fraction is estimated to be 55-60%. There are no obvious focal wall motion abnormalities noted but poor endocardial definition reduces the sensitivity for the detection of such. Pericardium/ Pleura There is no pericardial effusion. There is no pleural effusion. MMode/2D Measurements & Calculations LVIDd: 6.3 cm LVIDs: 4.9 cm FS: 23.4 % IVSd: 0.85 cm LVPWd: 0.92 cm LV arreola. diameter/BSA (cm/m^2): 2.6 LV sys. diameter/BSA (cm/m^2): 2.0 Reading Physician:05:16 PM
== END ==
PROVIDERS: PCP Registered Nurse; Referring Provider Internal Medicine Cardiovascular Disease; Visit Provider Internal Medicine Cardiovascular Disease
DX: I50.22 Chronic systolic (congestive) heart failure (principal)
CPT/HCPCS: 93307; Q9957